=== PATIENT | male | born 1975 | race Caucasian/White ===

== ENCOUNTER 2016-10-04 21:06 | Inpatient (IN) | payer OTHER ==
[~2016-10-04] VITALS: Ht 182.9 cm; Wt 78.9 kg
[~2016-10-04 21:06] MED LIST: CEPHALEXIN500 M3 PO
--- NOTE | 2016-10-04 21:10 | ED PSYCHIATRIC COMPLAINT ---
History of Present Illness General Chief Complaint: Altered Mental Status Stated Complaint: BIBA FOR HALLUCINATIONS Source: patient Exam Limitations: no limitations Vital Signs & Intake/Output Vital Signs & Intake/Output Vital Signs Date Time Temp Pulse Resp B/P B/P Pulse O2 O2 Flow FiO2 Mean Ox Delivery Rate 10/05 0411 128 22 125/66 97 Room Air 10/05 0410 128 22 125/66 10/05 0200 97.2 117 22 150/78 10/05 0200 97.2 117 22 150/78 98 Room Air 10/05 0008 97.2 128 22 151/83 96 Room Air 10/04 2358 97.2 128 22 151/83 10/04 2131 97.7 142 20 118/72 10/04 2119 97.7 142 20 118/72 96 Room Air ED Intake and Output 10/05 0000 10/04 1200 Intake Total Output Total Balance Patient 175 lb Weight Weight Estimated Measurement Method Allergies Coded Allergies: No Known Allergies (10/07/15) Reconcile Medications Cephalexin 500 MG CAPSULE 2 CAP PO BID FINGER WOUND Citalopram Hydrobromide (Celexa) 20 MG TABLET 1 TAB PO DAILY DEPRESSION ( Reported) Quetiapine Fumarate (Seroquel) 100 MG TABLET SLEEP HELP (Reported) Triage Nurses Notes Reviewed? yes Onset: Gradual Duration: day(s): Timing: recent history Severity: moderate Associated Symptoms: anxiety, impaired concentration, insomnia HPI: 41 yo gentleman on seroquel and celexa for bipolar disorder, with hallucinations, h/o etoh abuse , presents with insomnia, increased hallucinations for the past 4 days. Tonight, his neighbors saw him rolling around in the dirt, and acting bizarrely. He notes that he looks at things, "and they seem to move." Per the medics, "He said that he saw an animal that wasn't there." He reports that he binge-drinks twice per week, has never had seizures. He denies SI/HI. He is otherwise well. Past History Travel History Traveled to [place] past 21 day No Medical History Any Pertinent Medical History? see below for history Neurological: NONE EENT: NONE Cardiovascular: NONE Respiratory: NONE Gastrointestinal: NONE Hepatic: NONE Renal: NONE Musculoskeletal: NONE Psychiatric: bipolar disease Endocrine: NONE Tetanus Vaccine: 10/07/15 Surgical History Surgical History: non-contributory Psychosocial History What is your primary language Welsh Family History Hx Contributory? No Review of Systems Review of Systems Constitutional: Reports: no symptoms. EENTM: Reports: no symptoms. Respiratory: Reports: no symptoms. Cardiovascular: Reports: no symptoms. GI: Reports: no symptoms. Genitourinary: Reports: no symptoms. Musculoskeletal: Reports: no symptoms. Skin: Reports: no symptoms. Neurological/Psychological: Reports: no symptoms. Hematologic/Endocrine: Reports: no symptoms. Immunologic/Allergic: Reports: no symptoms. All Other Systems: Reviewed and Negative Physical Exam Physical Exam General Appearance: well developed/nourished, mild distress Head: atraumatic Eyes: Bilateral: PERRL, EOMI. Ears, Nose, Throat: normal pharynx, normal ENT inspection, hearing grossly normal Neck: normal inspection, supple Respiratory: normal breath sounds Cardiovascular: regular rate/rhythm Gastrointestinal: soft, non-tender Extremities: normal range of motion Neurological/Psychiatric: no motor/sensory deficits, awake, agitated, anxious, oriented x 3 Appearance/Memory/Insight: disheveled Behavoir/Eye Contact/Speech: cooperative Thoughts/Hallucinations: auditory hallucinations, visual hallucinations Skin: intact, normal color, warm/dry SAD PERSONS Done? patient not suicidal Progress Differential Diagnosis: bipolar, alcoholism vs other. Plan of Care: Orders Procedure Date/time Status Nothing by Mouth 10/05 B Active ICU LAB BUNDLE 10/05 0615 Active ALKALINE PHOSPHATASE 10/05 0615 Active PROTHROMBIN TIME 10/05 0600 Complete HIV (Reflex to HIVCQ) 10/05 0600 Active HEPATITIS PANEL 10/05 0600 Active CBC WITHOUT DIFFERENTIAL 10/05 06 Complete BASIC ELECTROLYTES PLUS BUN&CR 10/05 0600 Active XRY-PORTABLE CHEST XRAY 10/05 0551 Active THYROID STIMULATING HORMONE 10/05 0540 Active FOLIC ACID 10/05 0540 Active VITAMIN B12 10/05 0540 Active Pathway - chart 10/05 0457 Active House Staff 10/05 0457 Active SOCIAL WORK CONSULT 10/05 0457 Active Code Status 10/05 0457 Active Intake & Output 10/05 0413 Active Patient Data 10/05 0408 Active Admit to inpatient 10/05 0403 Active Restraint- Medical 10/05 0235 Active Lab Add-on Test 10/05 UNK Active VTE Mechanical Prophylaxis 10/05 UNK Active Hemoccult 10/05 UNK Active PSYCHIATRIC CONSULT 10/05 UNK Active Continuous Observation Monitor 06/09 2224 Active EKG 10/05 2223 Active Pathway - chart 10/04 2222 Active CIWA 10/04 2222 Active ED CRISIS PSYCH CONSULT 10/04 2130 Active URINE DRUG SCREEN FOR ER ONLY 10/04 2112 Complete ETHANOL 10/04 2112 Complete COMPREHENSIVE METABOLIC PANEL 10/04 2112 Complete CBC WITHOUT DIFFERENTIAL 10/04 2112 Complete Current Medications Sig/Ravinder Start time Last Medication Dose Stop Time Status Admin Folic Acid 1 MG DAILY 10/08 1000 AC (Folic Acid) Multivitamins 1 TAB DAILY 10/08 1000 AC (Theragran Vitamins) Thiamine HCl 100 MG DAILY 10/08 1000 AC (Vitamin B1) Enoxaparin Sodium 40 MG DAILY 10/05 1000 AC (Lovenox) Cyanocobalamin/ 1 BAG DAILY 10/05 06 AC Thiamine/Pyridoxine 10/06 1759 (Vitamin in I.V.) Dextrose/Water 1,000 ML (D5W 1000) Lorazepam 50 MG Q24H 10/05 06 AC (Ativan Drip) Dextrose/Water 500 ML (Dextrose 5%) Pantoprazole Sodium 40 MG DAILY 10/05 06 AC (Protonix) Acetaminophen 650 MG Q6P PRN 10/05 0500 AC (Tylenol) Dextrose/Sodium 1,000 ML .Q10H 10/05 0500 AC Chloride (D5W-1/2 Normal Saline 1000ML) Lorazepam 2 MG Q2P PRN 10/04 2230 AC 10/05 (Ativan) 0230 Lorazepam 1 MG Q2P PRN 10/04 2230 AC (Ativan) Laboratory Tests 10/05/16 0551: Vitamin B12 Cancelled, Folate Cancelled, TSH Cancelled 10/05/16 0540: Anion Gap 16, Estimated GFR > 60, BUN/Creatinine Ratio 21.1, Vitamin B12 Pending , Folate Pending, TSH Pending, PT 11.7, INR 1.12, CBC w Diff NO MAN DIFF REQ, RBC 4.24 L, MCV 96.9 H, MCH 32.5 H, RDW 13.8, MPV 7.8, Gran % 81.6 H, Lymphocytes % 8.6 L, Monocytes % 8.7, Eosinophils % 0.7, Basophils % 0.4, Absolute Granulocytes 8.4 H, Absolute Lymphocytes 0.9 L, Absolute Monocytes 0.9 H, Absolute Eosinophils 0.1, Absolute Basophils 0, PUBS MCHC 33.5, Hepatitis A IgM Ab Pending, Hep Bs Antigen Pending, Hep B Core IgM Ab Conf Pending, Hepatitis C Antibody Pending, HIV 1&2 Ab Western Blot Pending 10/04/165: Urine Opiates Screen < 100.00, Methadone Screen < 40, Barbiturate Screen < 60, Ur Phencyclidine Scrn < 6.00, Amphetamines Screen < 100, U Benzodiazepines Scrn < 85, Urine Cocaine Screen < 50, Urine Cannabis Screen 5.30 10/04/165: Anion Gap 15, Estimated GFR > 60, BUN/Creatinine Ratio 20.0, Glucose 100 H, Calcium 10.2, Total Bilirubin 1.0, AST 161 H, ALT 146 H, Alkaline Phosphatase 85, Total Protein 8.3 H, Albumin 4.7, Globulin 3.6, Albumin/Globulin Ratio 1.3, CBC w Diff NO MAN DIFF REQ, RBC 4.28 L, MCV 96.9 H, MCH 32.7 H, RDW 13.8, MPV 7.5, Gran % 73.6, Lymphocytes % 14.1 L, Monocytes % 8.6, Eosinophils % 2.1, Basophils % 1.6, Absolute Granulocytes 8.0 H, Absolute Lymphocytes 1.5, Absolute Monocytes 0.9 H, Absolute Eosinophils 0.2, Absolute Basophils 0.2, PUBS MCHC 33.7, Serum Alcohol < 10.0 Initial ED EKG: sinus tachycardia Departure Departure Disposition: STILL A PATIENT Condition: Stable Clinical Impression Primary Impression: Glenna Secondary Impressions: Alcohol withdrawal syndrome Referrals: UNKNOWN Departure Forms: Customer Survey General Discharge Information Comments 10/05/16, 3:25AM... pt's delusions and tremors have accelerated over the past hour. Also, we obtained additional history from his family, stating that he drinks heavily (not the 1-2x a week that he originally stated). Given the recent acceleration in his symptoms, and the new history obtained from family, and a CIWA score of 22, this is most consistent with alcohol withdrawal symptoms. Pt merits icu level care. Admission Note Spoke With: PAMELA EDWARDS,VENANCIO Documentation of Exam: Documentation of any treatments & extenuating circumstances including Concerns Regarding Discharge (functional status, medication knowledge or non-compliance, living conditions, etc.) that warrant an admission rather than observation: See above. Patient initially had been calm and stable but over the past several hours has had increasing CIWA scores requiring large doses of Ativan 2 mg IV. He merits ICU level care for benzodiazepine administration. Critical Care Note Critical Care Note Critical Care Time: 30-74 min Comments: pt required multiple rounds of ativan and started on ativan drip. Delay in diagnosis due to unusual presentation of symptoms.
[2016-10-04] MEDS ORDERED: CELEXA20 M1 PO (21:16)
[2016-10-04] MEDS ORDERED: SEROQUEL100 M1 (21:17)
--- NOTE | 2016-10-04 21:19 | NUR ---
FROM HOME W/ C/O HALLUCINATIONS. STATES HE WAS AT A LIBERTARIAN FOR HIMSELF AND WAS DOING A LIBERTARIAN RELATED ACTIVITY WHEN NEIGHBOR NOTICED HIS INCREASED SHAKING AND CALLED EMS. PATIENT ARRIVES W/ EXTREMELY BLOODSHOT EYES. STATES THEY HAVE BEEN ITCHING AND DRAINING. EMS INFORMS THIS NURSE THAT THERE WAS NO ONE AT HIS HOUSE WITH HIM WHEN THEY ARRIVED.
--- NOTE | 2016-10-04 21:23 | NUR ---
PATIENT HAS NOT SLEPT SINCE FRIDAY. PATIENT STATES HE DOES NOT TAKE HIS MEDS PRESCRIBED. MOTHER STATES HE IS AN ALCOHOLIC. HAS EPISODES OF HALLUCINATIONS AND DELUSIONS. ADMITTED TO [facility] IN [facility]ARCH. WAS D/C'D W/ REFERRAL TO PSYCHIATRIST. WAS PRESCRIBED MEDS AND HAS NOT FOLLOWED UP. PSYCH MENTIONED TO FAMILY THAT PATIENT MAY BE BIPOLAR BUT PATIENT HAS HAD NO FOLLOW-UP. MOTHER IS UNSURE OF WHEN PATIENT HAD HIS LAST INTAKE OF ETOH. MOTHER DOESN'T PATIENT KNOW IF THE PATIENT CAN STAY AWAY FROM ETOH FOR MORE THAN A DAY. NEIGHBOR CALLED POLICE AFTER SEEING PATIENT IN YARD ACTING STRANGELY OUT IN THE YARD BY RUBBING DIRT ALL OVER HIMSELF. PATIENT DID NOT SHOW SIGNS OF BEING DIRTY ON ARRIVAL.
[2016-10-04 21:31] VITALS: BP 118/72
--- NOTE | 2016-10-04 21:39 | NUR ---
LABS SENT (BLUE,SST,LAV,HEATH)
[2016-10-04 21:44] LABS: ABSOLUTE BASOPHIL COUNT 0.2 /CUMM (0.0-0.2); ABSOLUTE EOSINOPHIL COUNT 0.2 /CUMM (0.0-0.7); ABSOLUTE LYMPH COUNT 1.5 /CUMM (1.2-3.4); ABSOLUTE MONOCYTE COUNT 0.9 /CUMM (0.10-0.60); BASOPHIL % 1.6 % (0.0-2.0); EOSINOPHIL % 2.1 % (0-5); GRANULOCYTE % 73.6 % (42.2-75.2); HEMATOCRIT 41.5 % (42-52); MEAN CORPUSCULAR HGB 32.7 PG (27.0-31.0); MEAN CORPUSCULAR HGB CONC 33.7 G/DL (33.0-37.0); MEAN CORPUSCULAR VOLUME 96.9 FL (80.0-94.0); MEAN PLATELET VOLUME 7.5 FL (7.4-10.4); PLATELET COUNT 215 /CUMM (130-400); RBC DISTRIBUTION WIDTH 13.8 % (11.5-14.5); RED BLOOD CELL CT 4.28 /CUMM (4.70-6.10); WHITE BLOOD CELL COUNT 10.9 /CUMM (4.8-10.8)
--- NOTE | 2016-10-04 21:49 | NUR ---
URINE TRIO SENT
--- NOTE | 2016-10-04 21:55 | NUR ---
1 pr shoes 1 pr white socks 1 pr khaki cargo short 1 blue t-shirt all items bagged, labled and locked in closet.
--- NOTE | 2016-10-04 21:59 | NUR ---
MEAL TRAY GIVEN
--- NOTE | 2016-10-04 22:31 | NUR ---
PATIENT REMAINS IN ROOM 3 AND THERE IS NO ONE ELSE PRESENT BUT HE IS CONTINUOUSLY TALKING TO PERSONS THAT AREN'T THERE. PATIENT REMAINS CALM.
--- NOTE | 2016-10-04 22:52 | NUR ---
REPORT TO NORMA JOHNSON
--- NOTE | 2016-10-04 23:00 | NUR ---
PT STANDING AT DOOR SHAKING AND STATES HE IS LOOKING FOR HIS CLOTHES. PT INFORMED THAT CLOTHES ARE LOCKED AWAY IN OUR CLOSET AND WILL BE RETURNED UPON DISCHARGE. PT STATES "OKAY, IM JUST READY TO GO." PT INFORMED THAT HE WILL BE STAYING HERE IN THE ED FOR THE NIGHT. PT LOOKS OVER HIS SHOULDER AND STATES "HE'S READY TO GO." PT ASSISTED BACK TO STRETCHER. TELEVISION TURNED ON DISTRACTION TECHNIQUE.
[2016-10-04 23:58] VITALS: BP 151/83
[2016-10-05] VITALS (7 sets, daily range): BP systolic 118–150; BP diastolic 58–100
--- NOTE | 2016-10-05 00:06 | NUR ---
PT CIWA 22 AT THIS TIME. PT MEDICATED PER EMAR. PT SPEAKING IN SENTENCES THAT ARE UNRELATED TO CURRENT SITUATION. PT ALERT TO PERSON, PLACE AND TIME.
--- NOTE | 2016-10-05 00:30 | NUR ---
PT ATTEMPTS TO LEAVE ROOM AND STATES "HE TRIED TO THROW SOMETHING AT ME" HE POINTS TO THE CORNER OF THE ROOM. PT REDIRECTED AND INFORMED THAT HE IS AT [facility] AND HE IS THE ONLY PERSON IN HIS ROOM AT THIS TIME. PT SITTING ON BED AT THIS TIME.
--- NOTE | 2016-10-05 01:01 | NUR ---
PT BECOMING AGGRESSIVE TOWARDS STAFF. SECURITY AT BEDSIDE. PT CONFUSED AND AGITATED. DR BENDER AWARE. PT MEDICATED PER EMAR. WILL CONTINUE TO MONITOR. SITTER IN PLACE.
--- NOTE | 2016-10-05 02:00 | NUR ---
PT HAS REMOVED BLUE SCRUBS AND IS SITTING IN CORNER OF ROOM ON THE FLOOR. THIS RN IN TO SPEAK WITH PT. PT SPEAKING IN WORD SALAD. PT ASSISTED TO PUT BLUE SCRUBS BACK ON. MADE AWARE.
--- NOTE | 2016-10-05 02:35 | NUR ---
PT CONTINUES TO DEMONSTRATE AGGRESSIVE BEHAVIOR. PT HAS MADE MULTIPLE ATTEMPTS TO ESCAPE FROM ROOM. MULTIPLE RELAXATION AND DISTRACTION TECHNIQUES INITIATED. PT PLACED IN NET BED PER ORDER.
--- NOTE | 2016-10-05 03:23 | NUR ---
PT CONTINUES TO HAVE TREMORS. PT DIAPHORETIC. PT NOTED TO BE CONFUSED AND SPEAKING IN WORD SALAD. DR BENDER IN TO EVAL PT. PT MOVED TO MEDICAL ROOM 12. SECURITY AT BEDSIDE FOR ASSISTANCE.
--- NOTE | 2016-10-05 04:13 | NUR ---
DR SANTIAGO IN TO EVAL PT. PT REMAINS CONFUSED. PT DEMONSTRATES SEVERE TREMORS. PT MEDICATED WITH ATIVAN IV PER EMAR.
--- NOTE | 2016-10-05 04:17 | NUR ---
DR BENDER AT BEDSIDE.
--- NOTE | 2016-10-05 04:22 | NUR ---
PT NOTED TO BE SLEEPING IN NET BED, SNORING PRESENT. MINOR TREMORS OF HANDS NOTED. WILL CONTINUE TO MONITOR.
--- NOTE | 2016-10-05 04:52 | History & Physical ---
ANSELMOJHOANATAMARA ACOSTA 10/05/16 0452: General Information and HPI MD Statement: I have seen and personally examined KARI MEDINA and documented this H& P. The patient is a 41 year old M who presented with a patient stated chief complaint of alcohol withdrawal Source of Information: ED records Exam Limitations: obtunded History of Present Illness: 41-year-old gentleman with past medical history significant for depression bipolar disorder questionable she is still effective disorder, alcohol abuse brought in by ambulance as his neighbors noted that he was throwing dirt himself and acting strange and they called 911. Unable to obtain any history as patient is currently obtunded and is arousable to voice however not answering any questions. ED staff spoke to his mother who stated that he is a heavy drinker and that he is noncompliant with his medications. He was admitted [facility] in March 2016. Allergies/Medications Allergies: Coded Allergies: No Known Allergies (10/07/15) Home Med list Cephalexin 500 MG CAPSULE 2 CAP PO BID FINGER WOUND Citalopram Hydrobromide (Celexa) 20 MG TABLET 1 TAB PO DAILY DEPRESSION ( Reported) Quetiapine Fumarate (Seroquel) 100 MG TABLET SLEEP HELP (Reported) Compliance With Home Meds: POOR Past History Travel History Traveled to [place] past 21 day No Medical History Neurological: NONE EENT: NONE Cardiovascular: NONE Respiratory: NONE Gastrointestinal: NONE Hepatic: NONE Renal: NONE Musculoskeletal: NONE Psychiatric: depression Endocrine: NONE Isolation History: Standard Tetanus Vaccine: 10/07/15 Surgical History Surgical History: non-contributory Past Family/Social History Psychosocial History ETOH Use: occasional use Review of Systems Review of Systems Constitutional: Reports: see HPI. Exam & Diagnostic Data Last 24 Hrs of Vital Signs/I&O Vital Signs Date Time Temp Pulse Resp B/P B/P Pulse O2 O2 Flow FiO2 Mean Ox Delivery Rate 10/05 0411 128 22 125/66 97 Room Air 10/05 0410 128 22 125/66 10/05 0200 97.2 117 22 150/78 10/05 0200 97.2 117 22 150/78 98 Room Air 10/05 0008 97.2 128 22 151/83 96 Room Air 10/04 2358 97.2 128 22 151/83 10/04 2131 97.7 142 20 118/72 06/09 2119 97.7 142 20 118/72 96 Room Air Intake & Output 10/05 0800 10/05 0000 10/04 1600 Intake Total 220 Output Total Balance 220 Intake, Oral 220 Patient 175 lb Weight Weight Estimated Measurement Method Physical Exam General Appearance obtunded Skin plethoric Skin Temp/Moisture Exam: Warm/Dry HEENT Atraumatic, PERRLA Cardiovascular Normal S1, Normal S2, tachycardic Lungs Clear to Auscultation Abdomen Soft, No Tenderness Extremities No Edema Diagnostic Data EKG Results Sinus tachycardia Assessment/Plan Assessment: 41-year-old gentleman with past medical history significant for depression bipolar disorder questionable she is still effective disorder, alcohol abuse brought in by ambulance as his neighbors noted that he was throwing dirt himself and acting strange and they called 911. Will admit to ICU for IV ativan drip As Ranked By This Provider Problem List: 1. Alcohol withdrawal syndrome Assessment/Plan vitals per protocol, seizure precautions ? ETOH withdrawal vs Drug toxicity IV ativan drip per CIWA score, Banana bag, IV thiamine, IV fluids, IV PPI utox negative Collateral information from family in AM. follow up TSH, B12, folic acid, hepatitis panel and HIV. Check INR. follow CXR for aspiration Please reconcile CMR in am Keep NPO and hold all meds for now Psych and social work consult when stable. dvt ppx with sc lovenox 2. Full code status Core Measures/Miscellaneous Acute Coronary Syndrome ACS Diagnosis: No Cerebrovascular Accident CVA/TIA Diagnosis: No Congestive Heart Failure CHF Diagnosis: No VTE (View Protocol) VTE Risk Factors: Age > 40 [facility] d/t: No contraindications No VTE Pharm Prophylaxis d/t: No contraindications VTE Diagnosis: No VTE Type: NONE VTE Confirmed by (Test): NONE Sepsis (View Protocol) Severe Sepsis Present: No Septic Shock Septic Shock Present: No Miscellaneous Documentation Attending Case Discussed With: VENANCIO SANTIAGO MD Primary Care Physician: PATIENT HAS NO PRIMARY CARE DR Patient sees these Specialists none Level of Patient Care: Critical Care (CRI) ERMA GALO MD 10/05/16 0501: Resident Review Statement Resident Statement: examined this patient, discussed with mechanical engineering intern, agreed with mechanical engineering intern, discussed with family Other Findings: 41-year-old male with past medical history of bipolar disorder and alcohol abuse comes in with complaints of abnormal behavior with auditory and visual hallucinations. Patient is altered and not able to give a history. However from ER notes patient's family have reported that patient binge drinks heavily which may explain his symptoms. His last drink was reportedly 4-5 days ago. Hx of seiqures is not known but pt has not been complaint with his psych medications or visits for his bipolar condition. Urine tox-Neg for ETOH CIWAs in the ER have ranged from 22-31 Problem list Severe alcohol withdrawal-High risk for DTs Alcohol abuse Leukocytosis-Reactive or due to dehydration Plan Admit to ICU Start Ativan drip and titrate as needed CIWA Q1hrs IV banana bag till able to take oral meds; then switch to PO Multivitamins, Thiamine and Folate IV PPI Watch his vitals closely IVF D5/1/2 NS 100cc/hr for hydration Keep him NPO for now Check TSH, B12, Folate Chek INR Check Hepatitis panel/HIV Check and replete electrolytes as needed Psych and SW consults Mild Pain pathway FC DVT ppx-sc lovenox Please obtain more thorough history from family. PAMELA EDWARDS, [facility] 10/05/16 0510: Attending MD Review Statement Attending Statement Attending MD Statement: examined this patient, discuss w/resident/PA/DENTAL ASSISTANT INSTRUCTOR, agreed w/resident/PA/DENTAL ASSISTANT INSTRUCTOR Attending Assessment/Plan: 41 yo M with h/o depression, bipolar disorder, ?schizoaffective d/o, alcohol abuse was brought in from home to ER on October 04 for c/o visual hallucinations and insomnia for past 4 days. History is as obtained from the chart, as patient was sedated and confused on my eval. Neighbours saw him rolling around in the dirt, acting bizarre and called 911. On ER arrival, patient reported he binge- drinks, never had seizures and denied SI or HI. Unclear when his last drink was. Non compliant with medications. Per RN notes, patient was admitted to [facility] in Mar 2016 but never followed Psych thereafter. While in the ER, patient was talking to persons that were not there, was confused and agitated. His CIWA's were high ~ 20-30's. He received about 10-12 mg of ativan and 20 mg of zyprexa. Vitals stable except for tachycardia. Limited exam, patient was lying naked on his bed, confused, tremulous, diaphoretic, eyes closed, speaking gibberish. Pupils mid dilated, reactive to light. Crusting noted in the eyes. Dry mucous membranes. Chest b/l clear, Heart S1S2 tachycardic, Abdo: soft, non tender. LE: no edema. Neuro: moving all extremities, no obvious focal deficit. Labs: WBC 10.9, H/H 14/41.5, macrocytosis, glucose 100, AST 161, ALT 146. Utox neg. S. Alcohol <10. EKG: Sinus tachycardia. 1. Acute alcohol withdrawal with delirium tremens. ICU admit, vitals Q1, CIWA protocol, IV ativan drip to titrate based on CIWA scores, NPO, currently respiratory status stable. Banana bag, IV thiamine, IV fluids. Maintain sitter protocol. Urine tox screen is negative, not sure if he consumed any other drugs. Please obtain collateral information from family in AM. Psych and social work consult when able. 2. Leukocytosis ?reactive. Check urinalysis and CXR. 3. Macrocytosis likely 2/2 alcohol use. Check TSH, B12, folic acid. 4. Transaminitis in the setting of alcohol use. Check hepatitis panel and HIV. Check INR. 5. Depression, BPD. Patient is on citalopram and seroquel per med claim history. Will hold off meds for now, consult Psych and resume when patient able to take PO. GI ppx IV PPI. DVT ppx Lovenox. Full code. TTS > 45 mins
--- NOTE | 2016-10-05 04:59 | NUR ---
PT REMAINS ASLEEP IN NET BED. NORMAL RR NOTED. WILL CONTINUE TO MONITOR.
--- NOTE | 2016-10-05 05:10 | NUR ---
PT DEMONSTRATING INCREASED TREMORS. PT MEDICATED PER EMAR. HOUSESTAFF AT BEDSIDE FOR EVAL. PHARMACY CALLED FOR ATIVAN DRIP.
--- NOTE | 2016-10-05 05:11 | Admission Certification ---
Admission Certification Certification Statement - As attending physician, I certify that at the time of - admission, based on clinical presentation, severity of - symptoms, need for further diagnostic testing and - therapeutic interventions, and risk of adverse outcomes - without in-hospital treatment, in my clinical assessment, - this patient requires an acute hospital stay for a minimum - of two nights or longer. I have also considered psychsocial - factors such as support system, advanced age, financial - issues, cognitive issues, and failed out-patient treatments, - past re-admission history, safety of patient, and lack of - compliance as applicable. Specific rationale supporting this admission is: Acute alcohol withdrawal with delirium tremens requiring ativan drip and ICU level of care.
--- NOTE | 2016-10-05 05:19 | NUR ---
PER MD RITCHIE START BANANA BAG SOON SECOND LINE IS ESTABLISHED. PHARMACY CALLED FOR BANANA BAG.
--- NOTE | 2016-10-05 05:20 | NUR ---
PT DEMONSTRATING JERKING MOVEMENTS OF ARMS. HOUSESTAFF AWARE.
--- NOTE | 2016-10-05 05:47 | NUR ---
SSTX2, LAV AND BLUE TOP TUBES SENT TO LAB.
[2016-10-05 05:59] LABS: ABSOLUTE BASOPHIL COUNT 0 /CUMM (0.0-0.2); ABSOLUTE EOSINOPHIL COUNT 0.1 /CUMM (0.0-0.7); ABSOLUTE GRANULOCYTE CT 8.4 /CUMM (1.4-6.5); ABSOLUTE LYMPH COUNT 0.9 /CUMM (1.2-3.4); ABSOLUTE MONOCYTE COUNT 0.9 /CUMM (0.10-0.60); BASOPHIL % 0.4 % (0.0-2.0); EOSINOPHIL % 0.7 % (0-5); GRANULOCYTE % 81.6 % (42.2-75.2); HEMATOCRIT 41.1 % (42-52); MEAN CORPUSCULAR HGB 32.5 PG (27.0-31.0); MEAN CORPUSCULAR HGB CONC 33.5 G/DL (33.0-37.0); MEAN CORPUSCULAR VOLUME 96.9 FL (80.0-94.0); MEAN PLATELET VOLUME 7.8 FL (7.4-10.4); PLATELET COUNT 205 /CUMM (130-400); RBC DISTRIBUTION WIDTH 13.8 % (11.5-14.5); RED BLOOD CELL CT 4.24 /CUMM (4.70-6.10); WHITE BLOOD CELL COUNT 10.3 /CUMM (4.8-10.8)
[2016-10-05 06:04] LABS: PT 11.7 SEC (9.4-12.5)
--- NOTE | 2016-10-05 07:15 | NUR ---
ATIVAN DRIP INITIATED IN L HAND IV. BANANA BAG DRIP INITIATED IN R HAND IV.
--- NOTE | 2016-10-05 07:16 | NUR ---
REPORT GIVEN TO NORMA BEDOLLA.
--- NOTE | 2016-10-05 07:18 | NUR ---
ASSUMED CARE OF PT WHO IS CURRENTLY IN NET BED, SHAKING AND SCRATCHING OCCASIONALLY. PT REMOVED HIS PAPER SCRUBS AND WAS PLACED IN A JOHNNEY COAT BY THIS SUPERVISOR MOLD SHOP. ATIVAN GTT INFUSING AT 24 ML/HR (2.4 MG/HR). BANANNA BAG ALSO INFUSING. PT WITHIN VISUAL VIEW OF THIS SUPERVISOR MOLD SHOPCANDI CURRENTLY AT BEDSIDE
--- NOTE | 2016-10-05 07:52 | NUR ---
ROOM 106
--- NOTE | 2016-10-05 08:29 | NUR ---
REPORT TO ICU. UNABLE TO OBTAIN CXR D/T PT CONDITION
--- NOTE | 2016-10-05 08:42 | NUR ---
PT PULLED OUT IV IN RH. #20 G PLACED IN RW
--- NOTE | 2016-10-05 09:30 | NUR ---
TRANSFER FROM ER; SOFT SPOKEN DROWSEY/AROUSABLE MAN; ORIENTED TO DATE BUT THINKS HE IS HOME. EYES ARE VERY RED WITH CRUSTY DRAINAGE NOTED. SR IN THE 90'S, BP 130/60, TEMP 97.3. LUNGS CLEAR ALL LOBES SAT. 95%, PT. DOESNT KNOW WHEN HE POOPED LAST BUT SAID HIS LAST DRINK WAS FRIDAY. ZUÑIGA, BILAT. WRIST AND SANDRO RESTRAINTS PLACED ORDERED. ATIVAN GTT AT 3MG/HR FOR SAS OF 3, WILL TITRATE PER PROTOCOL. GROIN RED WITH NO BREAKDOWN; ALOEVESTA APLLIED. BED ALARM, RED SOCKS PLACED. MOTHER EMMA UPDATED PER PHONE CALL WITH DR. RAJPUT.
--- NOTE | 2016-10-05 12:00 | NUR ---
PSYCHIATRY CAME BY TO SEE PT.; PT. NOT APPROPRIATE FOR COMPREHENSIVE ASSESSMENT BY PSYCHE AT THIS TIME; THEY WILL TRY AGAIN TOMORROW
--- NOTE | 2016-10-05 12:42 | Event Note ---
Event Note Event Note: Interval History : I talked to the mother - EMMA SHAW [phone] at length, about his son's History and more details on his presentation and alcohol addiction. * Apparently the son - Mr. Colbert had been drinking socially over the weekend, since his teenage years, however this was never recognized as a problem until 5 years ago. 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 * The entire family including his and 2 sons were in the [place] 2-1 /2 years for 9 years when they moved back to the [place]. * He started having issues with drinking when he started having frequent falls, he would be over drunk started having problems at his workplace 5 years ago.Subsequently he also got . * The two sons and the live with . his mother ,but he has been living on his own since 2 years. He lost his job 1 year ago. * Previously patient was admitted at a rehabilitation center, at [facility], 3 years ago and apparently that must have been the only period when he might have sober for 30 days as per the mother. * She could not give all the details as she does not live with him however, as per her ,he mostly drinks Gin and can easily go up to a bottle a day. * He also had a recent admission at [facility] in March 2016, he was apparently In the psych ICU, he was asked to follow up with psychiatry after discharge and there was only one occasion when he visited a doctor. * He does not like doctors, he never followed up with his psychiatrist after that visit as per her. * She wasn't sure if he was taking his medications. * She did not give us any history of any other addictions other than alcohol. * She did endorse a history that he keeps having hallucinations, paranoia on and off and is always shaky. * She did not know if he had any alcohol withdrawal seizures. * She wasn't aware, when his last drink would have been however she said that he was going to meet his boys over the weekend and there might be a possibility that he was trying to avoid drinking in order to be sober to meet them. * She was not aware of his medications and doesn't have PCP and doesn't visit any doctors * PMH : depression, bipolar, as per her, no other Chronic conditions. * Also, went and checked him home, most of his psych medications were in the bottle and he seemed to be no taking them at all - citalopram and quetiapine the house was tidy, he has OTC allergy medications, 2 empty bottles of vodka and empty cans of budlight.
--- NOTE | 2016-10-05 13:30 | PN- Att Addend ---
Attending Addendum Attending Brief Note 41-year-old male with past medical history significant for bipolar disorder, depression, she has affective disorder, I'll call abuse has been admitted to the ICU for alcohol detox. Unfortunately patient is still obtunded due to continuous IV Ativan drip because of the high CIWA score and has been unable to communicate. Vitals stable and Labs noted. Resident has been able to get more information from patient's mother on the phone. Patient has also been recently admitted to [facility] in March 2016 where he was in the psych ICU and has been following up with the psychiatric. And his elevated CIWA score we'll continue to keep him on IV Ativan drip. His leukocytosis has came down with no signs of infections, no fever no white count, chest x-ray yet to be done. Please with the psych on board and replaces electrolytes. Should be kept off of his psych medications for now.
--- NOTE | 2016-10-05 15:35 | RADIOLOGY REPORT ---
EXAMINATION: XR PORTABLE CHEST CLINICAL INFORMATION: Obtunded patient. Evaluate for aspiration. COMPARISON: None TECHNIQUE: Portable frontal view of the chest was obtained. FINDINGS: Lungs are slightly hypoinflated and right diaphragm elevated. No evidence of pulmonary consolidation, interstitial edema or pleural effusion. Cardiac silhouette is normal in size. The bones are unremarkable. IMPRESSION: No evidence of aspiration pneumonia.
--- NOTE | 2016-10-05 20:00 | NUR ---
PATIENT WILL ANSWER QUESTIONS,FOLLOW COMMANDS,MOVE ALL EXTREMITIES.TREMULOUS WITH MOVEMENT BUT TREMORS NOT PRESENT WITH REST.SOFT SPOKEN AND CO OPERATIVE. ATIVAN DRIP AT 4 MG/HR.MONITOR SINUS RHYTHM AT RATE OF 90.XO=485/80.IVF OF D51/2/NS AT 100 ML/HR. PT REMAINS NPO.URINE OUTPUT 45 ML/HR FOR LAST HOUR VIA ZUÑIGA CATHETER.LUNG SOUNDS CLEAR,SAT=98% ON ROOM AIR.
[2016-10-06] VITALS: BP 130/80
[2016-10-06 05:28] LABS: ABSOLUTE BASOPHIL COUNT 0.1 /CUMM (0.0-0.2); ABSOLUTE EOSINOPHIL COUNT 0.4 /CUMM (0.0-0.7); ABSOLUTE GRANULOCYTE CT 6.9 /CUMM (1.4-6.5); ABSOLUTE LYMPH COUNT 1.5 /CUMM (1.2-3.4); EOSINOPHIL % 4.2 % (0-5); GRANULOCYTE % 69.8 % (42.2-75.2); HEMATOCRIT 41.5 % (42-52); MEAN CORPUSCULAR HGB 32.6 PG (27.0-31.0); MEAN CORPUSCULAR HGB CONC 33.1 G/DL (33.0-37.0); MEAN CORPUSCULAR VOLUME 98.4 FL (80.0-94.0); MEAN PLATELET VOLUME 7.8 FL (7.4-10.4); PLATELET COUNT 219 /CUMM (130-400); RBC DISTRIBUTION WIDTH 13.7 % (11.5-14.5); RED BLOOD CELL CT 4.22 /CUMM (4.70-6.10); WHITE BLOOD CELL COUNT 9.9 /CUMM (4.8-10.8)
[2016-10-06 06:00] VITALS: BP 119/80
[2016-10-06 08:00] VITALS: BP 118/70
--- NOTE | 2016-10-06 08:25 | Cons- CRCU ---
See Addendum General Information and HPI Consulting Request Date of Consult: 10/06/16 Requested By: MD PAMELA Reason for Consult: Alcohol withdrawl with DTs Source of Information: patient, family Exam Limitations: unable to give history History of Present Illness: This is a 41-year-old gentleman with a past medical history is significant for depression, bipolar disease, alcohol abuse since teenage years with rehabilitation placement in [place] 3 years ago, no reported or documented history of withdrawal seizures, noncompliance with his medications and psychiatric follow-up, recent psych admission at [facility], presented with a 4 day history of visual hallucination, insomnia, agitation and confusion. At presentation, patient denied any suicidal or homicidal ideation. Unclear when was the last drink. His U tox screen for drugs of abuse is unremarkable. Significant part of the history was obtained after the medical team contacted family. Allergies/Medications Allergies: Coded Allergies: No Known Allergies (10/07/15) Home Med List: Cephalexin 500 MG CAPSULE 2 CAP PO BID FINGER WOUND Citalopram Hydrobromide (Celexa) 20 MG TABLET 1 TAB PO DAILY DEPRESSION ( Reported) Quetiapine Fumarate (Seroquel) 100 MG TABLET SLEEP HELP (Reported) Review of Systems Review of Systems Constitutional: Reports: no symptoms. EENTM: Reports: no symptoms. Cardiovascular: Reports: no symptoms. Respiratory: Reports: no symptoms. GI: Reports: no symptoms. Genitourinary: Reports: no symptoms. Musculoskeletal: Reports: no symptoms. Skin: Reports: no symptoms. Neurological/Psychological: Reports: confusion. Hematologic/Endocrine: Reports: no symptoms. Past History Travel History Traveled to [place] past 21 day No Medical History Neurological: NONE EENT: NONE Cardiovascular: NONE Respiratory: NONE Gastrointestinal: NONE Hepatic: NONE Renal: NONE Musculoskeletal: NONE Psychiatric: depression, ETOH Endocrine: NONE Surgical History Surgical History: non-contributory Psychosocial History Where Do You Live? Home Services at Home: None Smoking Status: Unknown If Ever Smoked ETOH Use: occasional use Exam & Diagnostic Data Last 24 Hrs of Vital Signs/I&O Vital Signs Date Time Temp Pulse Resp B/P B/P Pulse O2 O2 Flow FiO2 Mean Ox Delivery Rate 10/06 0800 97.6 76 22 118/70 94 Room Air 10/06 0600 88 18 119/80 10/06 0400 95 Room Air 10/06 0000 97.2 100 18 130/80 10/06 0000 97.2 100 18 130/80 93 Room Air 10/06 0000 93 Room Air 10/05 2200 91 20 124/80 10/06 1999 98.2 90 20 124/80 10/06 1999 98 Room Air 10/05 1600 98.2 90 22 118/58 98 Room Air Intake & Output 10/06 1600 10/06 0800 10/06 0000 Intake Total 602 1241 Output Total 725 605 Balance -123 636 Intake, IV 602 1241 Output, Urine 725 605 Physical Exam General Appearance: alert, awake, tremulous Other Physical Findings: Skin Temp/Moisture Exam: Warm/Dry HEENT Atraumatic, PERRLA Cardiovascular Normal S1, Normal S2, tachycardic Lungs Clear to Auscultation Abdomen Soft, No Tenderness Extremities: upper extremity tremors noted Last 48 Hrs of Labs/Stevo: Laboratory Tests 10/06/16 0400: Anion Gap 11, Estimated GFR > 60, Glucose 71, Calcium 8.9, Phosphorus 4.0, Magnesium 2.1, Total Bilirubin 1.4 H, AST 202 H, ALT 183 H, Albumin 4.0, CBC w Diff NO MAN DIFF REQ, RBC 4.22 L, MCV 98.4 H, MCH 32.6 H, RDW 13.7, MPV 7.8 , Gran % 69.8, Lymphocytes % 14.8 L, Monocytes % 10.2 H, Eosinophils % 4.2, Basophils % 1.0, Absolute Granulocytes 6.9 H, Absolute Lymphocytes 1.5, Absolute Monocytes 1.0 H, Absolute Eosinophils 0.4, Absolute Basophils 0.1, PUBS MCHC 33.1 10/05/16 0615: Sodium Cancelled, Potassium Cancelled, Chloride Cancelled, Carbon Dioxide Cancelled, Anion Gap Cancelled, BUN Cancelled, Creatinine Cancelled, Glucose Cancelled, Calcium Cancelled, Phosphorus Cancelled, Magnesium Cancelled, Total Bilirubin Cancelled, Direct Bilirubin Cancelled, AST Cancelled, ALT Cancelled, Alkaline Phosphatase Cancelled, Total Protein Cancelled, Albumin Cancelled 10/05/16 0551: Vitamin B12 Cancelled, Folate Cancelled, TSH Cancelled 10/05/16 0540: Anion Gap 16, Estimated GFR > 60, BUN/Creatinine Ratio 21.1, Calcium 10.7 H, Phosphorus 5.0 H, Magnesium 1.9, Vitamin B12 512, Folate 19.4, TSH 2.070, PT 11.7, INR 1.12, CBC w Diff NO MAN DIFF REQ, RBC 4.24 L, MCV 96.9 H, MCH 32.5 H, RDW 13.8, MPV 7.8, Gran % 81.6 H, Lymphocytes % 8.6 L, Monocytes % 8.7, Eosinophils % 0.7, Basophils % 0.4, Absolute Granulocytes 8.4 H, Absolute Lymphocytes 0.9 L, Absolute Monocytes 0.9 H, Absolute Eosinophils 0.1, Absolute Basophils 0, PUBS MCHC 33.5, Hepatitis A IgM Ab NONREACTIVE, Hep Bs Antigen NONREACTIVE, Hep B Core IgM Ab Conf NONREACTIVE, Hepatitis C Antibody NONREACTIVE, HIV 1&2 Ab Western Blot NONREACTIVE 10/04/16 2145: Urine Opiates Screen < 100.00, Methadone Screen < 40, Barbiturate Screen < 60, Ur Phencyclidine Scrn < 6.00, Amphetamines Screen < 100, U Benzodiazepines Scrn < 85, Urine Cocaine Screen < 50, Urine Cannabis Screen 5.30 10/04/162134: Anion Gap 15, Estimated GFR > 60, BUN/Creatinine Ratio 20.0, Glucose 100 H, Calcium 10.2, Phosphorus 3.5, Magnesium 1.6, Total Bilirubin 1.0, AST 161 H, ALT 146 H, Alkaline Phosphatase 85, Total Protein 8.3 H, Albumin 4.7, Globulin 3.6, Albumin/Globulin Ratio 1.3, CBC w Diff NO MAN DIFF REQ, RBC 4.28 L, MCV 96.9 H, MCH 32.7 H, RDW 13.8, MPV 7.5, Gran % 73.6, Lymphocytes % 14.1 L, Monocytes % 8.6, Eosinophils % 2.1, Basophils % 1.6, Absolute Granulocytes 8.0 H, Absolute Lymphocytes 1.5, Absolute Monocytes 0.9 H, Absolute Eosinophils 0.2 , Absolute Basophils 0.2, PUBS MCHC 33.7, Serum Alcohol < 10.0 10/04/162112: Urine Color YEL, Urine Clarity HAZY H, Urine pH 6.0, Ur Specific Trimble 1.025, Urine Protein 30 H, Urine Ketones TRACE H, Urine Nitrite NEG, Urine Bilirubin NEG@ICTO, Urine Urobilinogen 1.0, Ur Leukocyte Esterase NEG, Ur Microscopic SEDIMENT EXAMINED, Urine RBC RARE, Urine WBC RARE, Urine Crystals RARE CA OX, Urine Mucus PACKD H, Urine Hemoglobin NEG, Urine Glucose NEG Microbiology 10/05 944 UPPER RESP: Surveillance Culture - COMP 10/05 944 GI: Surveillance Culture - COMP Assessment/Plan Impression/Plan: This is a 41-year-old gentleman with an extensive psychiatric history of bipolar disease, depression, recently hospitalized at [place] for psych issues, alcohol abuse since teenage years with a reported rehabilitation admission in [place] 3 years ago, continues to drink w/last drink date not known, presents with signs and symptoms consistent with delirium trenems (visual hallucination, global confusion, tremors, tachycardia and CIWA scores in the 20s). Patient required Ativan drip and admission to ICU. He remains free from suicidal or homicidal ideation. Impression * Alcohol withdrawal with delirium tremens. Pt has an extensive history of alcohol abuse, his last date of drink is not known, his serum alcohol level shows lower limit of detection <10mg/dl. Patient is a high risk of worsening withdrawal symptoms when his alcohol level completely clears. Current CIWA score is 7, significant for tremors with a score of 4. * Transaminitis. Consistence with alcohol abuse with a pattern of of AST > ALT ratio. * History of psychiatric illness with prior hospitalization (bipolar and depression. Noncompliant with medication or psychiatric follow-up visits. Plan Continue ICU placement Current Ativan drip is at 4 mg per hour, will taper appropriately Will continue banana bag, thiamine, and folate supplementation Seizure precautions Passed bedside swallow eval, will advance diet to regular Will continue 4 point restraints and reassess every 4 hours Will await psych recommendation regarding patient's depression, bipolar and alcohol abuse history. Will defer to psych on when to restart psychiatric medication as patient has been reported not to have been taking them while at home. Problem List: 1. Alcohol withdrawal syndrome Consult Acknowledgment - Thank you for your consult request.
--- NOTE | 2016-10-06 12:44 | Cons- Psychiatry ---
Psychiatric Consult Date of Consult: 10/06/16 Reason for Consult: alcohol dependence, delirium, History of Present Illness: patient is a 41 yo male with hx of alcohol dependnce. unclear psych hx. He came to the ed after neighbors called police as he was having bizarre behavior. Patient admits drinking heavily, about half a bottle of vodka adn a few beers, "a couple of time a week". He say his last drink was friday and he did not sleep for 4 nights after. He does not remember well the circumstances that broght him to the hos[pital. He say she was digging in his backyard looking for some bugs. He is a bit foggy still buit he is clearly clearing up. He has been receiving atvan drip at 4mg /hour. Allergies: Coded Allergies: No Known Allergies (10/07/15) Current Medications: Current Medications Sig/Ravinder Start time Last Medication Dose Route Stop Time Status Admin Acetaminophen 650 MG Q6P PRN 10/05 0500 DC PO Cyanocobalamin/ 1 BAG DAILY 10/05 1240 AC 10/06 Thiamine/Pyridoxine IV 0943 Dextrose/Water 1,000 ML Cyanocobalamin/ 1 BAG DAILY 10/05 0600 DC 10/05 Thiamine/Pyridoxine IV 10/06 1759 0704 Dextrose/Water 1,000 ML Dextrose/Sodium 1,000 ML .Q10H 10/05 0500 DC 10/05 Chloride IV 0753 Enoxaparin Sodium 40 MG DAILY 10/05 1000 AC 10/06 SC 0906 Erythromycin 1 FROILAN 4 TIMES/DAY 10/05 1800 AC 10/06 OPH 0906 Folic Acid 1 MG DAILY 10/08 1000 DC PO Insulin Human Regular 1 UNITS .STK-MED ONE 10/06 0018 DC IV 10/06 0019 Insulin Human Regular 0 Q6 10/05 1200 DC 10/05 SC 1240 Lorazepam 50 MG Q12H 10/05 2100 AC 10/06 Dextrose/Water 500 ML IV 0943 Lorazepam 1 MG Q4P PRN 10/05 2045 AC IV Lorazepam 50 MG Q24H 10/05 0600 DC 10/05 Dextrose/Water 500 ML IV 0704 Lorazepam 2 MG Q2P PRN 10/04 2230 AC 10/05 PO 0230 Lorazepam 1 MG Q2P PRN 10/04 2230 AC PO Multivitamins 1 TAB DAILY 10/08 1000 CAN PO Pantoprazole Sodium 40 MG DAILY 10/05 0600 AC 10/06 IV 0905 Potassium Chloride 10 MEQ Q1H 10/06 1000 DC 10/06 IV 10/06 1101 1108 Potassium Chloride 40 MEQ ONCE ONE 10/06 0945 CAN PO 10/06 0946 Thiamine HCl 100 MG DAILY 10/08 1000 DC PO Past History Past Medical History Neurological: NONE EENT: NONE Cardiovascular: NONE Respiratory: NONE Gastrointestinal: NONE Hepatic: NONE Renal: NONE Musculoskeletal: NONE Psychiatric: depression, ETOH Endocrine: NONE Past Surgical History Surgical History: non-contributory Assessment/Plan Mental Status Orientation: Confused Affect: Blunted Speech: Slurred Neuro-vegetative: Sleep Disturbance Mental Status Exam: Pt is sedated but able ot have conversation. He is oriented in self, place amd fairly oriented in date, He knows the president of [facility], Mild psychomotor reatrdation. Mood is described as feeling better, affect is somewhat blunted. Tought is foggy but imporving. No si/hi, denies voices, Ij is limited. He seems to be minimizing his drinking. However he reports he wants to quit,. Lab Results: Laboratory Tests 10/06/16 0400: Anion Gap 11, Estimated GFR > 60, Glucose 71, Calcium 8.9, Phosphorus 4.0, Magnesium 2.1, Total Bilirubin 1.4 H, AST 202 H, ALT 183 H, Albumin 4.0, CBC w Diff NO MAN DIFF REQ, RBC 4.22 L, MCV 98.4 H, MCH 32.6 H, RDW 13.7, MPV 7.8 , Gran % 69.8, Lymphocytes % 14.8 L, Monocytes % 10.2 H, Eosinophils % 4.2, Basophils % 1.0, Absolute Granulocytes 6.9 H, Absolute Lymphocytes 1.5, Absolute Monocytes 1.0 H, Absolute Eosinophils 0.4, Absolute Basophils 0.1, PUBS MCHC 33.1 Vital Signs Date Time Temp Pulse Resp B/P B/P Pulse O2 O2 Flow FiO2 Mean Ox Delivery Rate 10/06 0800 97.6 76 22 118/70 94 Room Air 10/06 0600 88 18 119/80 10/06 0400 95 Room Air 10/06 0000 97.2 100 18 130/80 10/06 0000 97.2 100 18 130/80 93 Room Air 10/06 0000 93 Room Air 10/05 2200 91 20 124/80 10/05 2000 98.2 90 20 124/80 10/05 2000 98 Room Air 10/05 1600 98.2 90 22 118/58 98 Room Air Diffential Diagnosis: Alcohol use disorder severe Delirium, due to alcohol withdrawal Bipolar duisorder? Impression: 41yo male in acute delirium,, seciondary to alcohol withdrawal. Mentation is improving. Provisional Treatment Plan: Continue with ativan taper adn CIWA Patient has not hamzah taking his psych meds. We will consider to re start them once he is clearing up.
--- NOTE | 2016-10-06 13:17 | PN- Att Addend ---
Attending Addendum Attending Brief Note 41-year-old male with past medical history significant for bipolar disorder, depression, she has affective disorder, I'll call abuse has been admitted to the ICU for alcohol detox. Unfortunately patient is still obtunded due to continuous IV Ativan drip which is now running at 4mg/hour because of the high CIWA score and has been unable to communicate. Vitals stable and Labs noted. Per more information from the family, patient has been recently admitted to [facility] in March 2016 where he was in the psych ICU and has been following up with the psychiatric. And his elevated CIWA score we'll continue to keep him on IV Ativan drip. His leukocytosis has came down with no signs of infections, no fever no white count, chest x-ray negative for aspiration pna. Please with the psych on board and replaces electrolytes. Should be kept off of his psych medications for now. Psych has evaluated the patient and in no specific recommendations regarding his psych medications for now unless he starts clearing up.
[2016-10-06 16:00] VITALS: BP 118/72
[2016-10-06 20:00] VITALS: BP 140/100
[2016-10-06 22:00] VITALS: BP 101/66
--- NOTE | 2016-10-06 23:24 | NUR ---
PATIENT IS RESTLESS,HAVING VISUAL HALLUCINATIONS.ATIVAN DRIP AT 13 MG/HR. MONITOR SINUS TACHYCARDIA AT RATE OF 112.SOFT WRIST RESTRAINTS IN PLACE TO PREVENT LINES AND ZUÑIGA FROM BEING DISPLACED.
[2016-10-07] VITALS (8 sets, daily range): BP systolic 99–148; BP diastolic 50–108
--- NOTE | 2016-10-07 07:23 | PN- Resident CRCU ---
Subjective HPI/CRCU Issues: Afebrile, hemodynamically stable, mildly tachycardic overnight, and saturating well on room air. Patient is laying on bed with bilateral UE soft restraint M Watson in place. Patient is alert and oriented X3. He is tremors but denies any headache, blurry vision, agitation, or visual hallucination. Patient denies any current active complaints. 24 Hour Events: Tmax: 98.1 HR: 76-120 BP: Lowest 104/61, highest 147/107 Is/Os yesterday: 4548/2765 CIWA score since yesterday 10 AM until today 10 AM:7,7,7,25,15,14,2,6,6,18,21. Objective Vital Signs & I&O Last 8 Hrs of Vitals and I&O: Vital Signs Date Time Temp Pulse Resp B/P B/P Pulse O2 O2 Flow FiO2 Mean Ox Delivery Rate 10/07 0750 99.0 88 18 99/50 97 Room Air 10/07 0600 85 18 104/61 10/07 0400 97.5 86 16 142/90 10/07 0400 95 Room Air 10/07 0200 86 18 127/69 10/07 0000 98.1 113 20 134/90 06/ 0000 98.1 113 20 134/90 93 Room Air / 0000 93 Room Air 10/06 2200 113 20 101/66 10/06 2000 98.1 114 18 140/100 10/07 1999 98 Room Air 10/06 1600 97.4 100 20 118/72 97 Room Air Intake & Output 10/07 1600 12 0800 10/07 0000 Intake Total 1044 1289 Output Total 1155 810 Balance -111 479 Intake, IV 1044 1289 Output, Urine 1155 810 Exam General Appearance: alert, awake, anxious Head: atraumatic, normal appearance, bilateral conjunctival congestion Respiratory: normal breath sounds, chest non-tender, no respiratory distress, lungs clear Cardiovascular: regular rate/rhythm Gastrointestinal: normal bowel sounds, soft, non-tender Extremities: normal inspection, no edema Cranial Nerves: normal speech, PERRL Current Medications: Current Medications Sig/Ravinder Start time Last Medication Dose Route Stop Time Status Admin Cyanocobalamin/ 1 BAG DAILY 10/05 1240 AC 10/07 Thiamine/Pyridoxine IV 0935 Dextrose/Water 1,000 ML Enoxaparin Sodium 40 MG DAILY 10/05 1000 AC 10/07 SC 0934 Erythromycin 1 FROILAN 4 TIMES/DAY 10/05 1800 AC 10/07 OPH 0934 Folic Acid 1 MG DAILY 10/08 1000 DC PO Lorazepam 100 MG Q7H 10/07 1500 AC Dextrose/Water 1,000 ML IV Lorazepam 100 MG Q12H 10/07 0000 AC 10/07 Dextrose/Water 1,000 ML IV 10/07 1459 0724 Lorazepam 50 MG Q12H 10/05 2100 DC 10/06 Dextrose/Water 500 ML IV 10/06 2359 0943 Lorazepam 1 MG Q4P PRN 10/05 2045 AC IV Lorazepam 2 MG Q2P PRN 10/04 2230 AC 10/05 PO 0230 Lorazepam 1 MG Q2P PRN 10/04 2230 AC PO Pantoprazole Sodium 40 MG DAILY 10/05 0600 AC 10/07 IV 0935 Thiamine HCl 100 MG DAILY 10/08 1000 DC PO Impression/Plan Impression/Problem List Impression: 41 yo male with hx of alcohol dependnce. unclear psych hx. He came to the ED after neighbors called police as he was having bizarre behavior. Patient admits drinking heavily, about half a bottle of vodka and a few beers, "a couple of time a week". He say his last drink was Friday09/30/16. Patient was started on IV Ativan and placed on stable protocol as his treatment of alcohol withdrawal. #Alcohol withdrawal * Continue IV Ativan and taper as tolerated * Continue CIWA scoring * Continue banana bag * Will DC Taylor * Continued follow psychiatric recommendations #Bacterial conjunctivitis * Continue erythromycin drop 4 times a day Regular diet DVT prophylaxis: Lovenox Full code Problem List: 1. Alcohol withdrawal syndrome Pain Ratin Tomorrow's Labs & Rationales: ICU bundle and CBC Plan DVT/Prophylaxis: mechanical, pharmacological
--- NOTE | 2016-10-07 11:13 | NUR ---
PT SAS IS 5-6, IV ATIVAN INCREASED TO 15MG PER HOUR. HE WAS ABLE TO EAT BREAKFAST. HE IS HALLUCINATING AND REPEATEDLY ATTEMPTING OOB.
--- NOTE | 2016-10-07 12:31 | PN- Psychiatry ---
See Addendum Assessment/Plan Impression: Identifying Info: 41-year-old male presents to [facility] emergency department on 10/05/2016 for altered mental status. He has a charted history of depression vs bipolar disorder vs schizoaffective disorder. He was admitted for alcohol withdrawal delirium. SUBJECTIVE At time of interview patient was receiving 15 mg of Ativan an hour but was able to participate in interview. He states "I hadn't slept in at least 4 days and started hallucinating." Patient reports for about 18 months he has had difficulty sleeping including difficulty falling asleep and middle the night awakening. He believes his primary issue has to do with sleep and is less concerned about alcohol use. Endorses 1 previous episode of delirium tremens "back in the [place] it is unclear when he lived in the [place]. Describes being started on amitriptyline in the past and having a marked increase in alertness and goal directed behavior. Reports he has responded well to quetiapine and propranolol for sleep and anxiety. He states this was prescribed by Dr. Dao of [facility] outpatient services who he only saw once. At present he is agreeable to intensive outpatient or residential treatment for alcohol use. Brief ROS Gait: Not observed Sleep: Poor Appetite: Adequate OBJECTIVE Mental Status Exam Presentation/Appearance: Patient in soft wrist restraints and Suzan vest. Cooperative with evaluation to the best of his ability. Hospital garb. Appears unkempt. Tremulous Orientation: Oriented to self, place, month and year not date. Sensorium: Awake and alert Eye contact: Fair Affect: Blunted Mood: Dysphoric Depression: Denies Anxiety: Denies Thought Content: - Denies SI/HI, AH/VH, PI. States and also believes they will not kill themselves. - Denies Hopeless/Helpless Thoughts Thought Process: Tangential at times, mild confusion Associations: Appropriate Speech: Normal tone and rate Judgment: Impaired Insight: Impaired Cognition: Memory: Short-term deficits, long-term appears more intact Attention/Concentration: Some impairments noted Fund of Knowledge: Adequate Abstractions: Did not assess MMSE: Did not assess Per nursing report the patient has been intermittently hallucinating reporting to seen drones, dogs, mice, and people in his room. He rambles incoherently at times but at others is somewhat more rational and redirectable. He was able to sit up and eat normal breakfast this morning despite high rate of Ativan. ASSESSMENT 41-year-old male presents with hallucinations and bizarre behavior and the context of alcohol withdrawal delirium. He has a reported history of mood disorder but his exact diagnosis is somewhat unclear at this time. His sleep disturbances as well as possible activation on amitriptyline may point to bipolar or schizoaffective diagnosis. It is unclear if he is currently experiencing a mood episode on top of delirium but if he is currently experiencing césar he may require inpatient psychiatric hospitalization once medically cleared. However at this time it would be prudent to wait until alcohol withdrawal delirium clears prior to evaluating for mood episode. Diagnosis Delirium due to alcohol withdrawal Alcohol use disorder severe Rule out unspecified depressive disorder versus unspecified bipolar disorder versus schizoaffective disorder A total of 45 minutes was spent with the patient with more than 50% of the time spent in counseling and/or coordination of care. Suggestion: 1. Continue CIWA, vitamin supplementation, and Ativan as required with goal to decrease total daily amount by 20% daily once symptoms are under control. If he remains at current rate he will recieve 360mg of ativan today, a gradual reduction of 72mg/day or 3mg/hr/day would be prudent. 2. Please repeat EKG. 3. If QTc is below 475 ms please start olanzapine 5 mg daily at bedtime. Consider olanzapine 2.5 mg q8h PO PRN for dangerous agitation as it may enable a decrease in the amount of benzo required. 4. Please initiate the following nonpharmacologic interventions: -Avoid nursing and medical procedures during sleep hours whenever possible - Cluster at night interventions that must be completed as much as possible to minimize sleep disruption - Decrease noise patient area during sleeping hours - Reduce lighting at night - Ensure patient has any sensory aids close by that he regularly uses 5. Once patient is clearer we will make determination of what level of psychiatric care would be recommended for this patient. At present, plan for residential or IOP substance tx. 6. Appreciate social work consult for disposition planning once patient is more stable. 7. We will continue to collect collateral to try to establish an accurate psychiatric diagnosis. Thank you for including psychiatry in this case we'll continue to follow. Subjective Subjective: as above Objective Last 24 Hrs of Vital Signs/I&O Current Medications Sig/Ravinder Start time Last Medication Dose Route Stop Time Status Admin Cyanocobalamin/ 1 BAG DAILY 10/05 1240 AC 10/07 Thiamine/Pyridoxine IV 0935 Dextrose/Water 1,000 ML Enoxaparin Sodium 40 MG DAILY 10/05 1000 AC 10/07 SC 0934 Erythromycin 1 FROILAN 4 TIMES/DAY 10/05 1800 AC 10/07 OPH 0934 Folic Acid 1 MG DAILY 10/08 1000 DC PO Lorazepam 100 MG Q7H 10/07 1500 AC Dextrose/Water 1,000 ML IV Lorazepam 100 MG Q12H 10/07 0000 AC 10/07 Dextrose/Water 1,000 ML IV 10/07 1459 0724 Lorazepam 50 MG Q12H 10/05 2100 DC 10/06 Dextrose/Water 500 ML IV 10/06 2359 0943 Lorazepam 1 MG Q4P PRN 10/05 2045 AC IV Lorazepam 2 MG Q2P PRN 10/04 2230 AC 10/05 PO 0230 Lorazepam 1 MG Q2P PRN 10/04 2230 AC PO Pantoprazole Sodium 40 MG DAILY 10/05 0600 AC 10/07 IV 0935 Thiamine HCl 100 MG DAILY 10/08 1000 DC PO Laboratory Tests 10/07/16 0400: Anion Gap 12, Estimated GFR > 60, Glucose 94, Calcium 9.3, Phosphorus 3.9, Magnesium 2.2, Total Bilirubin 1.0, AST 136 H, ALT 170 H, Albumin 4.1 Vital Signs Date Time Temp Pulse Resp B/P B/P Pulse O2 O2 Flow FiO2 Mean Ox Delivery Rate 10/07 0750 99.0 88 18 99/50 97 Room Air 10/07 0600 85 18 104/61 10/07 0400 97.5 86 16 142/90 10/07 0400 95 Room Air 10/07 0200 86 18 127/69 10/07 0000 98.1 113 20 134/90 10/07 0000 98.1 113 20 134/90 93 Room Air 10/07 0000 93 Room Air 10/06 2200 113 20 101/66 10/07 1999 98.1 114 18 140/100 10/07 1999 98 Room Air 10/06 1600 97.4 100 20 118/72 97 Room Air Intake & Output 10/07 1600 10/07 0800 10/07 0000 Intake Total 1044 1289 Output Total 1155 810 Balance -111 479 Intake, IV 1044 1289 Output, Urine 1155 810
--- NOTE | 2016-10-07 14:48 | NUR ---
sw referral received from MD Mary for ETOH abuse. Pt is in ICU and receiving 15mg of Ativan drip per hour. Pt's delirium has not cleared. Sw invited into see pt while Alyssia GREEN was assisting pt and his area. Pt was sitting in a chair with a poise and had just eaten some lunch which he was wearing due to having trouble with feeding himself due to tremors or shaking . Pt made eye contact and was cooperative, pleasent and calm. 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 Pt spoke of there being many people at the libertarian including his 2 middle school children and thei r mother who does not drink. He spoke of the police coming and nnot believing they were real vs libertarian of the libertarian. Pthas some awareness of where he was ; hospital. HE responded well to the nurse's ressurance. Pt was not able to participate in discharge planning. His needs will need to be assessed when his mental status improves. Pt may choose to return to [facility] pt. sw available upon request.
--- NOTE | 2016-10-07 15:32 | NUR ---
PT REMAINS ON ATIVAN DRIP WHICH WAS INCREASED TO 15 MG PER HOUR. WAS ABLE TO ASSIST PT OOB TO CHAIR FOR 45 MINUTES, HE WAS ABLE TO BATH HIMSELF AND REMAINS ABLE TO FEED HIMSELF MEALS. OCCASIONAL EPISODES OF AGITATION PERSIST. ZYPREXA STARTED.
--- NOTE | 2016-10-07 17:16 | NUR ---
PT BECAME SUDDENLY AGRESSIVE AND DANGEROUSLY AGITATED AFTER RECEIVING PO ZYPREXZA. HE WAS CAUGHT IN HIS SANDRO AND ATTEMPTING TO PULL SANDRO OVER HIS HEAD WHILE STRAINING AT THE WRIST RESTRAINTS. CODE 10 CALLED AND PTS BEHAVIOUR CONTINUED TO ESCALATE SO CODE 7 CALLED. PT WAS SECURED IN 4 POINT HARD RESTRAINTS. SITTER WAS OBTAINED. ICU RESIDENT AT BEDSIDE. ATIVAN BOLUS GIVEN. PHARMACY NOTIFIED OF ADVERSE REACTION TO THE ZYPREXA.
--- NOTE | 2016-10-07 21:02 | NUR ---
RECIEVED PT AWAKE, ALERT TO PLACE AND PERSON YEAR AND MONTH BUT NOT DAY OFF WEEK. FOLLOWS COMMANDS. PT WAS IN 4 POINT GEOVANNI, SWITCHED TO BILATERAL SOFT WRIST RESTRAINTS, EXPLAINED TO PT AND PT WAS IN AGREEANCE. SAFETY MONITOR REMAINS IN PLACE. HR SR ON MONITOR, ALL OTHER VITALS STABLE. PT TELLING STORIES THAT HAVE NO CONNECTION OR THAT MAKE SENSE. SKIN INTACT, PT IS USING URINAL BUT WAS INCONTINENT AT THIS TIME. OFFERED URINAL AFTER CLEANING BUT PT STATED HE WAS FINE. ATIVAN DRIP REMAINS AT 15MG/HR AND SAS IS 4. WILL MONITOR.
[2016-10-08] VITALS (12 sets, daily range): BP systolic 103–140; BP diastolic 61–104
--- NOTE | 2016-10-08 07:42 | PN- Resident CRCU ---
Subjective HPI/CRCU Issues: Afebrile, hemodynamically stable, heart rate within normal limits, and saturating well on 2 L of oxygen. She is laying in bed with bilateral upper extremity soft tissue strainers in place. He is alert and oriented X3. Looks mildly anxious but denies any current active complaints. Denies blurry vision, hallucination, dizziness, or hearing change. Patient now is on 12 mg of Ativan drip/H 24 Hour Events: Tmax: 98.1 HR: 70s BP: around 130s/110s CIWA score since yesterday 10 AM until today 10 AM: 21,20,22,30,7,8,7,6,7,6,10 Objective Vital Signs & I&O Last 8 Hrs of Vitals and I&O: Intake & Output 10/08 1600 Intake Total Output Total Balance Patient 78.925 kg Weight Exam General Appearance: alert, awake, anxious Head: atraumatic, normal appearance Respiratory: normal breath sounds, chest non-tender, no respiratory distress, lungs clear Cardiovascular: regular rate/rhythm Gastrointestinal: normal bowel sounds, soft, non-tender Extremities: normal inspection, no edema Current Medications: Current Medications Sig/Ravinder Start time Last Medication Dose Route Stop Time Status Admin Cyanocobalamin/ 1 BAG DAILY 10/05 1240 AC 10/08 Thiamine/Pyridoxine IV 1047 Dextrose/Water 1,000 ML Divalproex Sodium 250 MG BID 10/07 2200 AC 10/08 PO 1001 Enoxaparin Sodium 40 MG DAILY 10/05 1000 AC 10/08 SC 1001 Erythromycin 1 FROILAN 4 TIMES/DAY 10/05 1800 AC 10/08 OPH 1006 Folic Acid 1 MG DAILY 10/08 1000 DC PO Lorazepam 2 MG ONE ONE 10/07 1615 DC 10/07 IV 10/07 1616 1615 Lorazepam 100 MG Q7H 10/07 1500 AC 10/08 Dextrose/Water 1,000 ML IV 0537 Lorazepam 100 MG Q12H 10/07 0000 DC 10/07 Dextrose/Water 1,000 ML IV 10/07 1459 0724 Lorazepam 1 MG Q4P PRN 10/05 2045 AC IV Lorazepam 2 MG Q2P PRN 10/04 2230 AC 10/05 PO 0230 Lorazepam 1 MG Q2P PRN 10/04 2230 AC PO Olanzapine 5 MG AT BEDTIME 10/07 2200 CAN PO Olanzapine 2.5 MG Q8P PRN 10/07 1300 DC 10/07 PO 1449 Pantoprazole Sodium 40 MG DAILY 10/05 0600 AC 10/08 IV 1000 Potassium Chloride 40 MEQ ONCE ONE 10/08 1100 DC PO 10/08 1101 Thiamine HCl 100 MG DAILY 10/08 1000 DC PO Impression/Plan Impression/Problem List Impression: 41 yo male with hx of alcohol dependnce. unclear psych hx. He came to the ED after neighbors called police as he was having bizarre behavior. Patient admits drinking heavily, about half a bottle of vodka and a few beers, "a couple of time a week". He say his last drink was Friday09/30/16. Patient was started on IV Ativan and placed on stable protocol as his treatment of alcohol withdrawal. #Alcohol withdrawal * Continue IV Ativan drip and taper as tolerated * Continue CIWA scoring * Continue banana bag * Continued follow psychiatric recommendations #Bacterial conjunctivitis * Continue erythromycin drop 4 times a day Regular diet DVT prophylaxis: Lovenox Full code Problem List: 1. Alcohol withdrawal syndrome Pain Ratin Tomorrow's Labs & Rationales: CBC and ICU bundle Plan DVT/Prophylaxis: mechanical, pharmacological DVT/Prophylaxis: mechanical, pharmacological
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
--- NOTE | 2016-10-08 11:04 | NUR ---
Patient is alert and oriented to person and place- occasional visual hallucinations. Ativan gtt infusing at 12mg/hr SAS 3-4- Tremors noted when arms raised. He is able to follow commands and answer questions appropriately. On po Depakote. NSR on tele monitor, HR= 70-90's. SBP: 110-140's and he denies chest pain. On 2L nc, lungs clear and diminished at the bases. O2 sats stable at 96-99%. Abdomen is soft and non tender with + bowel sounds. He is tolerating a po diet well. On straight cath protocol and was last straight cathed at 0645. Skin appears intact with some dry patches noted. No s.s of pain and vitals are currently stable. A banana bag is also infusing. Psych in for follow-up. Pts Mom at the bedside and updated on POC. 1:1 sitter and soft wrist restraints remain in place. Will continue to closely monitor patient.
--- NOTE | 2016-10-08 15:30 | NUR ---
CIWA score 27 at this time, patient is confused and hallucinating- unable to be reoriented. He has had continued attempts of getting out of bed and is restless and anxious pulling at lines. Ativan gtt increased to 13mg/hr- A don vest and soft wrist restraints applied. Dr. Vazquez notified. 1:1 sitter remains at the bedside. Vitals currently stable. Will continue to closely monitor patient.
[2016-10-09] VITALS (10 sets, daily range): BP systolic 110–158; BP diastolic 59–110
[2016-10-09 05:11] LABS: ABSOLUTE BASOPHIL COUNT 0.1 /CUMM (0.0-0.2); ABSOLUTE EOSINOPHIL COUNT 0.4 /CUMM (0.0-0.7); ABSOLUTE GRANULOCYTE CT 3.1 /CUMM (1.4-6.5); ABSOLUTE LYMPH COUNT 1.5 /CUMM (1.2-3.4); ABSOLUTE MONOCYTE COUNT 0.9 /CUMM (0.10-0.60); BASOPHIL % 1.3 % (0.0-2.0); EOSINOPHIL % 7.4 % (0-5); GRANULOCYTE % 51.7 % (42.2-75.2); HEMATOCRIT 38.3 % (42-52); MEAN CORPUSCULAR HGB 32.8 PG (27.0-31.0); MEAN CORPUSCULAR HGB CONC 33.3 G/DL (33.0-37.0); MEAN CORPUSCULAR VOLUME 98.4 FL (80.0-94.0); MEAN PLATELET VOLUME 7.8 FL (7.4-10.4); PLATELET COUNT 325 /CUMM (130-400); RBC DISTRIBUTION WIDTH 13.5 % (11.5-14.5); RED BLOOD CELL CT 3.89 /CUMM (4.70-6.10); WHITE BLOOD CELL COUNT 6.1 /CUMM (4.8-10.8)
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
--- NOTE | 2016-10-09 12:45 | PN- Psychiatry ---
Assessment/Plan Impression: Identifying Info: 41-year-old male presents to [facility] emergency department on 10/05/2016 for altered mental status. He has a charted history of depression vs bipolar disorder vs schizoaffective disorder. He was admitted for alcohol withdrawal delirium. SUBJECTIVE Patient interviewed with social work Geneva Gutierrez LCSW. At time of interview patient was receiving 14 mg of Ativan an hour but was able to participate in interview. 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 Once redirected is able to discuss options for future ETOH treatment. Is agreeable to IOP post discharge. He has no complaints today. Brief ROS Gait: Remains in bed Sleep: Adequate Appetite: Adequate OBJECTIVE Mental Status Exam Presentation/Appearance: Calm. Cooperative with evaluation to best of his ability. Hospital garb. Appears unkempt. Orientation: x3 Sensorium: Awake and alert Eye contact: Fair Affect: Blunted Mood: Euthymic Depression: Denies Anxiety: Denies Thought Content: - Denies SI/HI, AH/VH, PI. States and also believes they will not kill themselves. - Denies Hopeless/Helpless Thoughts Thought Process: Primarily linear but some confusion and tangentiality are present. Associations: Appropriate Speech: Normal tone and rate Judgment: Impaired Insight: Impaired Cognition: Memory: Short-term deficits, long-term appears more intact Attention/Concentration: Some impairments noted Fund of Knowledge: Adequate Abstractions: Did not assess MMSE: Did not assess ASSESSMENT 41-year-old male presents with hallucinations and bizarre behavior and the context of alcohol withdrawal delirium. He has a reported history of mood disorder but his exact diagnosis is somewhat unclear at this time. His sleep disturbances as well as possible activation on amitriptyline may point to bipolar or schizoaffective diagnosis. It is unclear if he is currently experiencing a mood episode on top of delirium but if he is currently experiencing césar he may require inpatient psychiatric hospitalization once medically cleared. However at this time it would be prudent to wait until alcohol withdrawal delirium clears prior to evaluating for mood episode. Diagnosis Delirium due to alcohol withdrawal Alcohol use disorder severe Rule out unspecified depressive disorder versus unspecified bipolar disorder versus schizoaffective disorder A total of 30 minutes was spent with the patient with more than 50% of the time spent in counseling and/or coordination of care. Suggestion: 1. Continue CIWA, vitamin supplementation, and Ativan as required with goal to decrease total daily amount by 20% daily once symptoms are under control. 2. Continue Depakote at 250mg BID with plan to titrate based on level drawn tomorrow AM and tolerability. Continue to montior LFTs. 3. We have ordered a VPA level on AM of 10/10/16 prior to first dose of mediction. 4. Please continue the following nonpharmacologic interventions: -Avoid nursing and medical procedures during sleep hours whenever possible - Cluster at night interventions that must be completed as much as possible to minimize sleep disruption - Decrease noise patient area during sleeping hours - Reduce lighting at night - Ensure patient has any sensory aids close by that he regularly uses 5. Appreciate social work assistance for disposition planning, at present plan for IOP. Thank you for including psychiatry in this case we'll continue to follow. Subjective Subjective: as above Objective Last 24 Hrs of Vital Signs/I&O Current Medications Sig/Ravinder Start time Last Medication Dose Route Stop Time Status Admin Cyanocobalamin/ 1 BAG DAILY 10/05 1240 AC 10/09 Thiamine/Pyridoxine IV 0938 Dextrose/Water 1,000 ML Divalproex Sodium 250 MG BID 10/07 2200 AC 10/09 PO 0938 Enoxaparin Sodium 40 MG DAILY 10/05 1000 AC 10/09 SC 0938 Erythromycin 1 FROILAN 4 TIMES/DAY 10/05 1800 AC 10/09 OPH 0944 Hydrocortisone 1 FROILAN BID 10/09 1132 AC EXT Lorazepam 100 MG Q7H 10/07 1500 AC 10/09 Dextrose/Water 1,000 ML IV 0524 Lorazepam 1 MG Q4P PRN 10/05 2045 AC IV Lorazepam 2 MG Q2P PRN 10/04 2230 AC 10/05 PO 0230 Lorazepam 1 MG Q2P PRN 10/04 2230 AC PO Pantoprazole Sodium 40 MG DAILY 10/05 0600 AC 10/09 IV 0938 Laboratory Tests 10/09/16 0352: Anion Gap 11, Estimated GFR > 60, Glucose 108 H, Calcium 8.9, Phosphorus 4.2, Magnesium 1.9, Total Bilirubin 0.4, AST 89 H, ALT 138 H, Albumin 3.4 L, CBC w Diff NO MAN DIFF REQ, RBC 3.89 L, MCV 98.4 H, MCH 32.8 H, RDW 13.5, MPV 7.8, Gran % 51.7, Lymphocytes % 24.4, Monocytes % 15.2 H, Eosinophils % 7.4 H, Basophils % 1.3, Absolute Granulocytes 3.1, Absolute Lymphocytes 1.5, Absolute Monocytes 0.9 H, Absolute Eosinophils 0.4, Absolute Basophils 0.1, PUBS MCHC 33.3 Vital Signs Date Time Temp Pulse Resp B/P B/P Pulse O2 O2 Flow FiO2 Mean Ox Delivery Rate 10/09 1200 98.2 100 20 129/75 10/09 1200 96 Room Air Room Air 10/09 1000 98.7 94 15 123/74 10/09 0800 98.7 74 18 110/60 10/09 0800 96 Nasal 2.0L Cannula 10/09 0800 98.7 74 18 110/60 96 Nasal 2.0L Cannula 10/09 0600 98.0 83 18 119/80 10/09 0400 98.5 76 15 113/59 10/09 0400 96 Nasal 2.0L Cannula 10/09 0000 97.8 67 12 158/110 10/09 0000 96 Nasal 2.0L Cannula 10/09 0000 97.8 67 12 158/110 96 Nasal 2.0L Cannula 10/08 2200 76 15 121/85 10/09 1999 98.5 88 18 138/104 10/08 2000 99 Nasal 2.0L Cannula 10/08 1800 98 22 140/78 10/08 1700 99 20 135/77 10/08 1600 98.8 88 20 122/96 99 Nasal 2.0L Cannula 10/08 1600 99 Nasal 2.0L Cannula 10/08 1400 82 22 119/78 Intake & Output 10/09 1600 10/09 0800 10/09 0000 Intake Total 872 2225 Output Total 800 2350 Balance 72 -125 Intake, IV 872 1865 Intake, Oral 0 360 Number 0 0 Bowel Movements Output, Urine 800 2350
--- NOTE | 2016-10-09 12:47 | NUR ---
Patient is more appropriate, following commands, less restless/agitated, and not trying to ambulate unsafely or pull out lines and drains. Sitter still at bedside since patient is occasionally forgetful and not using the call loyd but don and wrist restraints d/c'd at 1200. Patient having purposeful conversation and talking about his specific psych meds he took and home and how much/often he drinks. He spoke about his ex girlfriend and her profession. This RN spoke to patient's mother over the phone. She states that the patient's speech is more clear but his thoughts are not organized and still confused. Family given emotional reassurance. Patient still on Ativan 13 mg/hr. SAS=4. CIWA<5 for occasional tremors, anxiety, and confusion to time. Bed alarm in place and sitter at bedside.
--- NOTE | 2016-10-09 13:45 | NUR ---
Visited with patient this am. Still on Ativan drip at 14mg/hour. In spite of this, he is able to sit up in bed and have a conversation, which at times, becomes tangential and disorganized. Met with patient along with Mick Cobb APRN from psychiatry. Please see his note from today as well. Patient still experiencing withdrawal which needs complete resolution prior to decision being made re: psychiatric care. At this time, the patient is agreeable to IOP, and we will be available to assist with securing an appointment at discharge. Follow.
--- NOTE | 2016-10-09 16:00 | NUR ---
ASSUMED CARE OF PATIENT. PATIENT ALERT CALM AND COOPERATIVE. SITTER AT BEDSIDE. PATIENT ALERT SPEAKING WITH MOTHER ON CELL PHONE. PATIENT INTRODUCED THIS NURSE TO MOTHER VIA FACETIME AND BEHAVING APPROPRIATELY. MOVES ALL EXTREMITIES. PATIENT ON ROOM AIR AND LUNGS CLEAR. MONITOR NSR WITHOUT ECTOPY. ABDOMEN SOFT AND NON TENDER, VOIDING WELL. SKIN INTACT.
[2016-10-10] VITALS (13 sets, daily range): BP systolic 100–151; BP diastolic 50–108
--- NOTE | 2016-10-10 00:45 | NUR ---
PT AROUSABLE, DENIES PAIN AT THIS TIME. ATIVAN GTT AT 13MG/H. HE HAS A 1:1 SITTER. NSR 70'S, MANUAL BP 110/60. SATURATION 92% ON RA, LUNGS SOUND CLEAR. ABDOMEN SOFT, NORMOACTIVE BS.
--- NOTE | 2016-10-10 08:23 | PN- Resident CRCU ---
Subjective HPI/CRCU Issues: Afebrile, Hemodynamically stable, HR within normal limits, and saturating well on room air. off soft restraints was DC'd. He is alert and oriented X3. Patient is under the impression that he will start working at [employer]. He denies any hallucination, headache, tremors, or blurry vision. He denies any other current active complaints Patient now is on 13 mg of Ativan drip/H Objective Vital Signs & I&O Last 8 Hrs of Vitals and I&O: Vital Signs Date Time Temp Pulse Resp B/P B/P Pulse O2 O2 Flow FiO2 Mean Ox Delivery Rate 10/10 0600 73 18 100/50 10/10 0400 97.0 67 18 122/64 10/10 0400 96 Room Air 10/10 0200 70 20 151/80 10/10 0000 97.9 70 18 110/60 10/10 0000 92 Room Air 10/10 0000 97.9 70 18 110/60 92 Room Air 10/09 2200 98 16 125/79 10/09 2000 99.2 106 18 132/86 10/09 1600 99.3 90 15 130/94 10/09 1600 98 Room Air 10/09 1600 99.3 90 20 130/94 98 Room Air 10/09 1400 98.4 100 20 118/84 10/09 1200 98.2 100 20 129/75 10/09 1200 96 Room Air Room Air 10/09 1000 98.7 94 15 123/74 Intake & Output 10/10 1600 10/10 0800 10/10 0000 Intake Total 1110 2495 Output Total 1800 Balance 1110 695 Intake, IV 1010 1415 Intake, Oral 100 1080 Number 1 Bowel Movements Output, Urine 1800 Exam General Appearance: well developed/nourished, no apparent distress, alert, awake , anxious Head: atraumatic, normal appearance Respiratory: normal breath sounds, chest non-tender, no respiratory distress, lungs clear Cardiovascular: regular rate/rhythm Gastrointestinal: normal bowel sounds, soft, non-tender Extremities: normal inspection Current Medications: Current Medications Sig/Ravinder Start time Last Medication Dose Route Stop Time Status Admin Chlordiazepoxide HCl 25 MG TID 10/10 1000 AC PO Cyanocobalamin/ 1 BAG DAILY 10/05 1240 AC 10/09 Thiamine/Pyridoxine IV 0938 Dextrose/Water 1,000 ML Divalproex Sodium 250 MG BID 10/07 2200 AC 10/09 PO 2128 Docusate Sodium 100 MG DAILY PRN 10/09 1300 AC PO Enoxaparin Sodium 40 MG DAILY 10/05 1000 AC 10/09 SC 0938 Erythromycin 1 FROILAN 4 TIMES/DAY 10/05 1800 AC 10/09 OPH 2128 Hydrocortisone 1 FROILAN BID 10/09 1132 AC 10/09 EXT 2128 Lorazepam 100 MG Q7H 10/07 1500 AC 10/10 Dextrose/Water 1,000 ML IV 0630 Lorazepam 1 MG Q4P PRN 10/05 2045 AC IV Lorazepam 2 MG Q2P PRN 10/04 2230 AC 10/05 PO 0230 Lorazepam 1 MG Q2P PRN 10/04 2230 AC PO Pantoprazole Sodium 40 MG DAILY 10/05 0600 AC 10/09 IV 0938 Patient Medication 1 ED .STK-MED ONE 10/09 1414 DC Teaching ED 10/09 1415 Potassium Chloride 40 MEQ ONCE ONE 10/09 1330 DC 10/09 PO 10/09 1331 1533 Senna 187 MG AT BEDTIME PRN 10/09 1300 AC 10/09 PO 1533 Impression/Plan Impression/Problem List Impression: 41 yo male with hx of alcohol dependnce. unclear psych hx. He came to the ED after neighbors called police as he was having bizarre behavior. Patient admits drinking heavily, about half a bottle of vodka and a few beers, "a couple of time a week". He say his last drink was Friday09/30/16. Patient was started on IV Ativan and placed on stable protocol as his treatment of alcohol withdrawal. #Alcohol withdrawal * Continue IV Ativan drip 13mg/h, we'll try to tailor by 20% daily * We will start librium 25 mg TID, to help the Ativan drip taper. * Continue CIWA scoring * Continue banana bag * Continued follow psychiatric recommendations #Bacterial conjunctivitis * Continue erythromycin drop 4 times a day, today is day 4 Regular diet DVT prophylaxis: Lovenox Full code Problem List: 1. Alcohol withdrawal syndrome Pain Ratin Tomorrow's Labs & Rationales: bep and cbc Plan DVT/Prophylaxis: mechanical, pharmacological
--- NOTE | 2016-10-10 08:47 | PN- CRCU ---
Subjective HPI/Critical Care Issues: The patient is awake and conversant. He appears to be confabulating and reports he was hired at [employer] for a job. He has little insight with regard to his alcohol withdrawal. He remains on 13 mg/h with controlled CIWA scores. Objective Current Medications: Current Medications Sig/Ravinder Start time Last Medication Dose Route Stop Time Status Admin Chlordiazepoxide HCl 25 MG TID 10/10 1000 AC PO Cyanocobalamin/ 1 BAG DAILY 10/05 1240 AC 10/09 Thiamine/Pyridoxine IV 0938 Dextrose/Water 1,000 ML Divalproex Sodium 250 MG BID 10/07 2200 AC 10/09 PO 2128 Docusate Sodium 100 MG DAILY PRN 10/09 1300 AC PO Enoxaparin Sodium 40 MG DAILY 10/05 1000 AC 10/09 SC 0938 Erythromycin 1 FROILAN 4 TIMES/DAY 10/05 1800 AC 10/09 OPH 2128 Hydrocortisone 1 FROILAN BID 10/09 1132 AC 10/09 EXT 2128 Lorazepam 100 MG Q7H 10/07 1500 AC 10/10 Dextrose/Water 1,000 ML IV 0630 Lorazepam 1 MG Q4P PRN 10/05 2045 AC IV Lorazepam 2 MG Q2P PRN 10/04 2230 AC 10/05 PO 0230 Lorazepam 1 MG Q2P PRN 10/04 2230 AC PO Pantoprazole Sodium 40 MG DAILY 10/05 0600 AC 10/09 IV 0938 Patient Medication 1 ED .STK-MED ONE 10/09 1414 DC Teaching ED 10/09 1415 Potassium Chloride 40 MEQ ONCE ONE 10/09 1330 DC 10/09 PO 10/09 1331 1533 Senna 187 MG AT BEDTIME PRN 10/09 1300 AC 10/09 PO 1533 Vital Signs & I&O Last 24 Hrs of Vitals and I&O: Vital Signs Date Time Temp Pulse Resp B/P B/P Pulse O2 O2 Flow FiO2 Mean Ox Delivery Rate 10/10 0600 73 18 100/50 10/10 0400 97.0 67 18 122/64 10/10 0400 96 Room Air 10/10 0200 70 20 151/80 10/10 0000 97.9 70 18 110/60 / 0000 92 Room Air 10/10 0000 97.9 70 18 110/60 92 Room Air 10/09 2200 98 16 125/79 10/09 2000 99.2 106 18 132/86 10/09 1600 99.3 90 15 130/94 10/09 1600 98 Room Air 10/09 1600 99.3 90 20 130/94 98 Room Air 10/09 1400 98.4 100 20 118/84 10/09 1200 98.2 100 20 129/75 10/09 1200 96 Room Air Room Air 10/09 1000 98.7 94 15 123/74 Intake & Output 10/10 1600 10/10 0800 10/10 0000 Intake Total 1110 2495 Output Total 1800 Balance 1110 695 Intake, IV 1010 1415 Intake, Oral 100 1080 Number 1 Bowel Movements Output, Urine 1800 Exam General Appearance: well developed/nourished, no apparent distress, alert, awake , anxious Head: atraumatic, normal appearance Respiratory: normal breath sounds, chest non-tender, no respiratory distress, lungs clear Cardiovascular: regular rate/rhythm Gastrointestinal: normal bowel sounds, soft, non-tender Extremities: normal inspection Results Last 24 Hrs of Lab Results: Laboratory Tests 10/10/16 0345: Anion Gap 11, Estimated GFR > 60, BUN/Creatinine Ratio 8.3, Valproic Acid 24.2 L Impression/Plan Impression/Plan Impression/Plan: 1. Alcohol withdrawal, with history of EtOH dependence. 2. Hallucinations. 3. History of mood disorder. Recommendations: * Continue to wean Ativan drip down to off if able. * Continue CIWA monitoring. * MVI/Thiamine/Folate. * Contine Depakote. * Follow-up psychiatry recommendations. * DVT prophylaxis at all times. * Continue GI prophylaxis. * Will continue Librium. * Avoid oversedation. * Continue all supportive care.
--- NOTE | 2016-10-10 14:40 | PN- Psychiatry ---
Assessment/Plan Impression: Identifying Info: 41-year-old male presents to [facility] emergency department on 10/05/2016 for altered mental status. He has a charted history of depression vs bipolar disorder vs schizoaffective disorder. He was admitted for alcohol withdrawal delirium. SUBJECTIVE Of note patient was receiving 7 mg an hour of Ativan during interview.Patient reports "Overall I'm pretty good." Expresses some frustration at inability to ambulate well but verbalizes understanding the need to pace himself and his recovery. No other complaint, states he feels more alert with change in medication. Brief ROS Gait: Ambulated with PT and a walker today Sleep: Adequate Appetite: Adequate OBJECTIVE Mental Status Exam Presentation/Appearance: Calm. Cooperative with evaluation to best of his ability. Hospital garb. Appears unkempt. Orientation: x3 Sensorium: Awake and alert Eye contact: Fair Affect: Wider range, less blunted Mood: Euthymic Depression: Denies Anxiety: Denies Thought Content: - Denies SI/HI, AH/VH, PI. States and also believes they will not kill themselves. - Denies Hopeless/Helpless Thoughts Thought Process: Linear, decrease in tangentality Associations: Appropriate Speech: Normal tone and rate Judgment: Fair Insight: Fair Cognition: Memory: Short-term deficits, long-term appears more intact Attention/Concentration: Some impairments noted but improving Fund of Knowledge: Adequate Abstractions: Did not assess MMSE: Did not assess ASSESSMENT 41-year-old male presents with hallucinations and bizarre behavior and the context of alcohol withdrawal delirium. He has a reported history of mood disorder but his exact diagnosis is somewhat unclear at this time. His sleep disturbances as well as possible activation on amitriptyline may point to bipolar or schizoaffective diagnosis. It is unclear if he is currently experiencing a mood episode on top of delirium but if he is currently experiencing césar he may require inpatient psychiatric hospitalization once medically cleared. However at this time it would be prudent to wait until alcohol withdrawal delirium clears prior to evaluating for mood episode. Diagnosis Delirium due to alcohol withdrawal Alcohol use disorder severe Rule out unspecified depressive disorder versus unspecified bipolar disorder versus schizoaffective disorder A total of 30 minutes was spent with the patient with more than 50% of the time spent in counseling and/or coordination of care. Suggestion: 1. Continue CIWA, vitamin supplementation, and Ativan as required with goal to decrease total daily amount by 20% daily once symptoms are under control. 2. Continue Depakote at 250mg BID will not titrate up for now as patient is in good behavioral control and their are no sx of césar. Continue to montior LFTs. 3. Appreciate social work assistance for disposition planning, at present plan for IOP. Thank you for including psychiatry in this case we'll continue to follow. Subjective Subjective: as above Objective Last 24 Hrs of Vital Signs/I&O Current Medications Sig/Ravinder Start time Last Medication Dose Route Stop Time Status Admin Chlordiazepoxide HCl 25 MG TID 10/10 1000 AC 10/10 PO 1054 Cyanocobalamin/ 1 BAG DAILY 10/05 1240 DC 10/09 Thiamine/Pyridoxine IV 0938 Dextrose/Water 1,000 ML Divalproex Sodium 250 MG BID 10/07 2200 AC 10/10 PO 1055 Docusate Sodium 100 MG DAILY PRN 10/09 1300 AC PO Enoxaparin Sodium 40 MG DAILY 10/05 1000 AC 10/10 SC 1056 Erythromycin 1 FROILAN 4 TIMES/DAY 10/05 1800 AC 10/10 OPH 1054 Folic Acid 1 MG DAILY 10/10 1000 AC 10/10 PO 1055 Hydrocortisone 1 FROILAN BID 10/09 1132 AC 10/10 EXT 1053 Lorazepam 100 MG Q7H 10/07 1500 AC 10/10 Dextrose/Water 1,000 ML IV 0630 Lorazepam 1 MG Q4P PRN 10/05 2045 AC IV Lorazepam 2 MG Q2P PRN 10/04 2230 AC 10/05 PO 0230 Lorazepam 1 MG Q2P PRN 10/04 2230 AC PO Multivitamins 1 TAB DAILY 10/10 1000 AC 10/10 PO 1055 Pantoprazole Sodium 40 MG DAILY 10/05 0600 AC 10/10 IV 1056 Senna 187 MG AT BEDTIME PRN 10/09 1300 AC 10/09 PO 1533 Thiamine HCl 100 MG DAILY 10/10 1000 AC 10/10 PO 1055 Laboratory Tests 10/10/16 0345: Anion Gap 11, Estimated GFR > 60, BUN/Creatinine Ratio 8.3, Valproic Acid 24.2 L Vital Signs Date Time Temp Pulse Resp B/P B/P Pulse O2 O2 Flow FiO2 Mean Ox Delivery Rate 10/10 918 98.8 80 17 118/84 97 Room Air 10/10 0800 98.8 80 17 118/84 10/10 0800 97 Room Air 10/10 0600 73 18 100/50 10/10 0400 97.0 67 18 122/64 10/10 0400 96 Room Air 10/10 0200 70 20 151/80 10/10 0000 97.9 70 18 110/60 10/10 0000 92 Room Air 10/10 0000 97.9 70 18 110/60 92 Room Air 10/09 2200 98 16 125/79 10/10 1999 99.2 106 18 132/86 10/09 1600 99.3 90 15 130/94 10/09 1600 98 Room Air 10/09 1600 99.3 90 20 130/94 98 Room Air Intake & Output 10/10 1600 10/10 0800 10/10 0000 Intake Total 1110 2495 Output Total 1800 Balance 1110 695 Intake, IV 1010 1415 Intake, Oral 100 1080 Number 1 Bowel Movements Output, Urine 1800
[2016-10-11] VITALS (10 sets, daily range): BP systolic 91–142; BP diastolic 47–110
[2016-10-11 05:32] LABS: ABSOLUTE BASOPHIL COUNT 0.1 /CUMM (0.0-0.2); ABSOLUTE EOSINOPHIL COUNT 0.4 /CUMM (0.0-0.7); ABSOLUTE GRANULOCYTE CT 3.8 /CUMM (1.4-6.5); ABSOLUTE LYMPH COUNT 1.8 /CUMM (1.2-3.4); ABSOLUTE MONOCYTE COUNT 0.9 /CUMM (0.10-0.60); EOSINOPHIL % 5.7 % (0-5); GRANULOCYTE % 53.7 % (42.2-75.2); HEMATOCRIT 41.1 % (42-52); MEAN CORPUSCULAR HGB 32.7 PG (27.0-31.0); MEAN CORPUSCULAR HGB CONC 33.3 G/DL (33.0-37.0); MEAN CORPUSCULAR VOLUME 98.1 FL (80.0-94.0); MEAN PLATELET VOLUME 7.8 FL (7.4-10.4); PLATELET COUNT 373 /CUMM (130-400); RBC DISTRIBUTION WIDTH 13.4 % (11.5-14.5); RED BLOOD CELL CT 4.19 /CUMM (4.70-6.10)
--- NOTE | 2016-10-11 07:31 | PN- Resident CRCU ---
Subjective HPI/CRCU Issues: Afebrile, Hemodynamically stable, HR within normal limits, and saturating well on room air. off soft restraints. He is alert and oriented X3, however he can hear his mom voice talking to us(pituitary hallucination). He denies headache, tremors, or blurry vision. Patient now is 1 mg Ativan drip Objective Vital Signs & I&O Last 8 Hrs of Vitals and I&O: Vital Signs Date Time Temp Pulse Resp B/P B/P Pulse O2 O2 Flow FiO2 Mean Ox Delivery Rate 10/11 1200 98.3 74 12 118/82 10/11 1200 95 Room Air 10/11 1000 98.0 94 13 115/74 10/11 0800 98.0 77 10 136/90 10/11 0800 96 Room Air 10/11 0800 98.0 77 10 136/90 94 Room Air 10/11 0600 97.5 80 18 107/65 10/11 0400 97.3 75 18 118/100 / 0400 96 Room Air 10/11 0000 98.2 71 20 142/110 /16 0000 99 Room Air 10/11 0000 98.2 71 71 142/110 99 Room Air / 2200 98.0 72 16 142/98 /15 2000 98.0 82 20 148/108 / 2000 100 Room Air /15 1800 97.8 82 17 135/100 /15 1600 97.8 80 20 128/82 06/15 1600 97.8 80 20 128/82 98 Room Air / 1400 98.7 82 31 122/84 Intake & Output 10/11 1600 /16 0800 10/11 0000 Intake Total 400 1160 Output Total 800 480 Balance -400 680 Intake, IV 400 560 Intake, Oral 0 600 Number 0 0 Bowel Movements Output, Urine 800 480 Exam General Appearance: well developed/nourished, no apparent distress, alert, awake , comfortable Head: atraumatic, normal appearance Respiratory: normal breath sounds, chest non-tender, no respiratory distress, quiet respiration Cardiovascular: regular rate/rhythm Extremities: normal inspection, no edema Current Medications: Current Medications Sig/Ravinder Start time Last Medication Dose Route Stop Time Status Admin Chlordiazepoxide HCl 25 MG TID 10/10 1000 AC 10/11 PO 1018 Divalproex Sodium 250 MG BID 10/07 2200 AC 06/16 PO 1017 Docusate Sodium 100 MG DAILY PRN 10/09 1300 AC PO Enoxaparin Sodium 40 MG DAILY 10/05 1000 AC 10/11 SC 1017 Erythromycin 1 FROILAN 4 TIMES/DAY 10/05 1800 AC 10/10 OPH 2129 Folic Acid 1 MG DAILY 10/10 1000 AC 10/11 PO 1016 Hydrocortisone 1 FROILAN BID 10/09 1132 AC 10/11 EXT 1019 Lorazepam 100 MG Q24H 10/11 0430 AC Dextrose/Water 1,000 ML IV Lorazepam 100 MG Q7H 10/07 1500 DC 10/10 Dextrose/Water 1,000 ML IV 1551 Lorazepam 1 MG Q4P PRN 10/05 2045 AC IV Lorazepam 2 MG Q2P PRN 10/04 2230 AC 10/05 PO 0230 Lorazepam 1 MG Q2P PRN 10/04 2230 AC PO Multivitamins 1 TAB DAILY 10/10 1000 AC 10/11 PO 1017 Pantoprazole Sodium 40 MG DAILY 10/05 0600 AC 10/11 IV 1016 Senna 187 MG AT BEDTIME PRN 10/09 1300 AC 10/09 PO 1533 Thiamine HCl 100 MG DAILY 10/10 1000 AC 10/11 PO 1017 Impression/Plan Impression/Problem List Impression: 41 yo male with hx of alcohol dependnce. unclear psych hx. He came to the ED after neighbors called police as he was having bizarre behavior. Patient admits drinking heavily, about half a bottle of vodka and a few beers, "a couple of time a week". He say his last drink was Friday09/30/16. Patient was started on IV Ativan and placed on stable protocol as his treatment of alcohol withdrawal. #Alcohol withdrawal * We will DC Ativan drip * We will continue librium 25 mg TID * Contine Depakote. * Continue CIWA scoring * On oral folic acid, thiamine, multivitamin. * Continued follow psychiatric recommendations in regard of discharge plan #Bacterial conjunctivitis * Continue erythromycin drop 4 times a day, today is day 4 Regular diet DVT prophylaxis: Lovenox Full code Problem List: 1. Alcohol withdrawal syndrome Pain Ratin Tomorrow's Labs & Rationales: BEP Plan DVT/Prophylaxis: mechanical, pharmacological
--- NOTE | 2016-10-11 08:59 | PN- CRCU ---
Subjective HPI/Critical Care Issues: The patient is awake and delusional. He reports that his mother is sending him messages and he is hallucinating about this. His Ativan drip has been turned off. The patient is not able to offer any complaints. Objective Current Medications: Current Medications Sig/Ravinder Start time Last Medication Dose Route Stop Time Status Admin Chlordiazepoxide HCl 25 MG TID 10/10 1000 AC 10/10 PO 2128 Divalproex Sodium 250 MG BID 10/07 2200 AC 10/10 PO 2128 Docusate Sodium 100 MG DAILY PRN 10/09 1300 AC PO Enoxaparin Sodium 40 MG DAILY 10/05 1000 AC 10/10 SC 1056 Erythromycin 1 FROILAN 4 TIMES/DAY 10/05 1800 AC 10/10 OPH 2129 Folic Acid 1 MG DAILY 10/10 1000 AC 10/10 PO 1055 Hydrocortisone 1 FROILAN BID 10/09 1132 AC 10/10 EXT 2129 Lorazepam 100 MG Q24H 10/11 0430 AC Dextrose/Water 1,000 ML IV Lorazepam 100 MG Q7H 10/07 1500 DC 10/10 Dextrose/Water 1,000 ML IV 1551 Lorazepam 1 MG Q4P PRN 10/05 2045 AC IV Lorazepam 2 MG Q2P PRN 10/04 2230 AC 10/05 PO 0230 Lorazepam 1 MG Q2P PRN 10/04 2230 AC PO Multivitamins 1 TAB DAILY 10/10 1000 AC 10/10 PO 1055 Pantoprazole Sodium 40 MG DAILY 10/05 0600 AC 10/10 IV 1056 Senna 187 MG AT BEDTIME PRN 10/09 1300 AC 10/09 PO 1533 Thiamine HCl 100 MG DAILY 10/10 1000 AC 10/10 PO 1055 Vital Signs & I&O Last 24 Hrs of Vitals and I&O: Vital Signs Date Time Temp Pulse Resp B/P B/P Pulse O2 O2 Flow FiO2 Mean Ox Delivery Rate 10/11 0800 98.0 77 10 136/90 10/11 0600 97.5 80 18 107/65 10/11 0400 97.3 75 18 118/100 10/11 0400 96 Room Air 10/11 0000 98.2 71 20 142/110 10/11 0000 99 Room Air 10/11 0000 98.2 71 71 142/110 99 Room Air 10/10 2200 98.0 72 16 142/98 06/15 2000 98.0 82 20 148/108 10/10 2000 100 Room Air 10/10 1800 97.8 82 17 135/100 10/10 1600 97.8 80 20 128/82 10/10 1600 97.8 80 20 128/82 98 Room Air 10/10 1400 98.7 82 31 122/84 10/10 1200 98.0 84 16 135/88 10/10 1200 97 Room Air 10/10 1000 98.8 80 16 122/79 10/10 0919 98.8 80 17 118/84 97 Room Air Intake & Output 10/11 1600 10/11 0800 10/11 0000 Intake Total 400 1160 Output Total 800 480 Balance -400 680 Intake, IV 400 560 Intake, Oral 0 600 Number 0 0 Bowel Movements Output, Urine 800 480 Exam General Appearance: well developed/nourished, no apparent distress, alert, awake , anxious Head: atraumatic, normal appearance Respiratory: normal breath sounds, chest non-tender, no respiratory distress, lungs clear Cardiovascular: regular rate/rhythm Gastrointestinal: normal bowel sounds, soft, non-tender Extremities: normal inspection Results Last 24 Hrs of Lab Results: Laboratory Tests 10/11/16 0432: Anion Gap 10, Estimated GFR > 60, Glucose 76, Calcium 9.4, Phosphorus 4.5, Magnesium 1.8, Total Bilirubin 0.3, AST 57, ALT 114 H, Albumin 3.5, CBC w Diff MAN DIFF ORDERED, RBC 4.19 L, MCV 98.1 H, MCH 32.7 H, RDW 13.4, MPV 7.8, Gran % 53.7, Lymphocytes % 25.1, Monocytes % 13.5 H, Eosinophils % 5.7 H, Basophils % 2.0, Absolute Granulocytes 3.8, Segmented Neutrophils 41 L, Band Neutrophils 1, Absolute Lymphocytes 1.8, Lymphocytes 38, Monocytes 13 H, Absolute Monocytes 0.9 H, Eosinophils 6 H, Absolute Eosinophils 0.4, Basophils 1, Absolute Basophils 0.1, Platelet Estimate ADEQUATE, Polychromasia 1+, Ovalocytes FEW, Stomatocytes FEW, PUBS MCHC 33.3, Fld Total RBCs Counted 100 Impression/Plan Impression/Plan Impression/Plan: 1. Alcohol withdrawal, with history of EtOH dependence. 2. Hallucinations. 3. History of mood disorder. Recommendations: * Continue to wean Ativan drip down to off if able. * Continue CIWA monitoring. * MVI/Thiamine/Folate. * Contine Depakote. * Follow-up psychiatry recommendations. The patient would likely need inpatient psych. * DVT prophylaxis at all times. * Continue GI prophylaxis. * Will continue Librium. * Avoid oversedation. * Continue all supportive care. * Will downgrade once off ativan for a significant period of time.
--- NOTE | 2016-10-11 09:12 | NUR ---
RESUMED PT CARE 729. AWOKE PT FOR AM ASSESSMENT. OX3. MILD HALLUCINATIONS, ABLE TO REORIENT. CMS X 4, GOOD STRENGTH. CIWA 4. SAS 4. ATIVAN AT 2MG, TITRATED TO 1MG TO OFF. SITTER AT BEDSIDE TO MONITOR PT SAFETY. VSS. NSR 70'S BP 136/90. ON RA, LUNGS CLR, SATING 94%+. PT CONSUMED 100% REGULAR DIET FOR BREAKFAST W GOOD APPETITE. -N/V/D. ABDOMEN SOFT W + BS. PT AMBULATE TO W ASSISST OF 1 AND RW FOR SUPPORT. GAIT UNSTEADY. ABLE TO VOID/BM WITHOUT COMPLAINT. NO PAIN. EDUCATED ON POC.
--- NOTE | 2016-10-11 14:42 | PN- Psychiatry ---
Assessment/Plan Impression: Identifying Info: 41-year-old male presents to [facility] emergency department on 10/05/2016 for altered mental status. He has a charted history of depression vs bipolar disorder vs schizoaffective disorder. He was admitted for alcohol withdrawal delirium. SUBJECTIVE Patient states "I'm good." Reports he is looking forward to being done with benzo taper and going to treatment. Verbalizes need for continued treatment. Endorses confusion this morning which she contributes to being woken up from sleep. "I thought it was calling my mom and she wasn't getting back to me then I slowly realized, oh wait, I'm in the hospital." Brief ROS Gait: Ambulated with PT and a walker today Sleep: Adequate Appetite: Adequate OBJECTIVE Mental Status Exam Presentation/Appearance: Calm. Cooperative with evaluation. Hospital garb. Appears unkempt, somewhat diaphoretic. Orientation: x3 Sensorium: Awake and alert Eye contact: Fair Affect: Somewhat blunted Mood: Euthymic Depression: Denies Anxiety: Denies Thought Content: - Denies SI/HI, AH/VH, PI. States and also believes they will not kill themselves. - Denies Hopeless/Helpless Thoughts Thought Process: Linear, decrease in tangentality Associations: Appropriate Speech: Normal tone and rate Judgment: Fair Insight: Fair Cognition: Memory: Short-term deficits, long-term intact Attention/Concentration: Grossly intact Fund of Knowledge: Adequate Abstractions: Did not assess MMSE: Did not assess Per nursing report patient's Ativan drip was discontinued at approximately 0900 this morning down from a rate of 7 mg an hour yesterday. He has been calm and cooperative. He did have some mild hallucinations this morning believing he was seeing something wrong with his ear. He slept well last night, noted no sx of acute césar. Per attending report patient was confused this morning. 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 Feels he may be experiencing mood episode and may require inpatient psych admission. ASSESSMENT 41-year-old male presents with hallucinations and bizarre behavior and the context of alcohol withdrawal delirium. He has a reported history of mood disorder but his exact diagnosis is somewhat unclear at this time. His sleep disturbances as well as possible activation on amitriptyline may point to bipolar or schizoaffective diagnosis. It is unclear if he is currently experiencing a mood episode on top of delirium but at present there are no overt signs of césar. He does endorse confusion and hallucinations are reported however is unclear if these are the result of acute confusional state, hypnagogic, or do to mood episode. At this time it would be prudent to wait until alcohol withdrawal delirium clears prior to evaluating for mood episode. Diagnosis Delirium due to alcohol withdrawal Alcohol use disorder severe Rule out unspecified depressive disorder versus unspecified bipolar disorder versus schizoaffective disorder A total of 30 minutes was spent with the patient with more than 50% of the time spent in counseling and/or coordination of care. Suggestion: 1. Continue CIWA, vitamin supplementation, and Ativan as required with goal to decrease total daily amount by 20% daily once symptoms are under control. Monitor for rebound delirium with rapid Ativan taper. 2. Continue Depakote at 250mg BID will not titrate up for now as patient is in good behavioral control and their are no sx of césar. Continue to montior LFTs. 3. Appreciate social work assistance for disposition planning, at present continue to plan for IOP. Thank you for including psychiatry in this case we'll continue to follow. Subjective Subjective: as above Objective Last 24 Hrs of Vital Signs/I&O Current Medications Sig/Ravinder Start time Last Medication Dose Route Stop Time Status Admin Chlordiazepoxide HCl 25 MG TID 10/10 1000 AC 10/11 PO 1018 Divalproex Sodium 250 MG BID 10/07 2200 AC 10/11 PO 1017 Docusate Sodium 100 MG DAILY PRN 10/09 1300 AC PO Enoxaparin Sodium 40 MG DAILY 10/05 1000 AC 10/11 SC 1017 Erythromycin 1 FROILAN 4 TIMES/DAY 10/05 1800 DC 10/10 OPH 2129 Folic Acid 1 MG DAILY 10/10 1000 AC 10/11 PO 1016 Hydrocortisone 1 FROILAN BID 10/09 1132 AC 10/11 EXT 1019 Lorazepam 100 MG Q24H 10/11 0430 AC Dextrose/Water 1,000 ML IV Lorazepam 100 MG Q7H 10/07 1500 DC 10/10 Dextrose/Water 1,000 ML IV 1551 Lorazepam 1 MG Q4P PRN 10/05 2045 AC IV Lorazepam 2 MG Q2P PRN 10/04 2230 AC 10/05 PO 0230 Lorazepam 1 MG Q2P PRN 06/09 2230 AC PO Multivitamins 1 TAB DAILY 10/10 1000 AC 10/11 PO 1017 Pantoprazole Sodium 40 MG DAILY 10/05 0600 AC 10/11 IV 1016 Senna 187 MG AT BEDTIME PRN 10/09 1300 AC 10/09 PO 1533 Thiamine HCl 100 MG DAILY 10/10 1000 AC 10/11 PO 1017 Laboratory Tests 10/11/16 0432: Anion Gap 10, Estimated GFR > 60, Glucose 76, Calcium 9.4, Phosphorus 4.5, Magnesium 1.8, Total Bilirubin 0.3, AST 57, ALT 114 H, Albumin 3.5, CBC w Diff MAN DIFF ORDERED, RBC 4.19 L, MCV 98.1 H, MCH 32.7 H, RDW 13.4, MPV 7.8, Gran % 53.7, Lymphocytes % 25.1, Monocytes % 13.5 H, Eosinophils % 5.7 H, Basophils % 2.0, Absolute Granulocytes 3.8, Segmented Neutrophils 41 L, Band Neutrophils 1, Absolute Lymphocytes 1.8, Lymphocytes 38, Monocytes 13 H, Absolute Monocytes 0.9 H, Eosinophils 6 H, Absolute Eosinophils 0.4, Basophils 1, Absolute Basophils 0.1, Platelet Estimate ADEQUATE, Polychromasia 1+, Ovalocytes FEW, Stomatocytes FEW, PUBS MCHC 33.3, Fld Total RBCs Counted 100 Vital Signs Date Time Temp Pulse Resp B/P B/P Pulse O2 O2 Flow FiO2 Mean Ox Delivery Rate 10/11 1200 98.3 74 12 118/82 10/11 1200 95 Room Air 10/11 1000 98.0 94 13 115/74 10/11 0800 98.0 77 10 136/90 10/11 0800 96 Room Air 10/11 0800 98.0 77 10 136/90 94 Room Air 10/11 0600 97.5 80 18 107/65 16 0400 97.3 75 18 118/100 16 0400 96 Room Air 16 0000 98.2 71 20 142/110 10/11 0000 99 Room Air 10/11 0000 98.2 71 71 142/110 99 Room Air 15 2200 98.0 72 16 142/98 10/10 2000 98.0 82 20 148/108 10/10 2000 100 Room Air 10/10 1800 97.8 82 17 135/100 10/10 1600 97.8 80 20 128/82 10/10 1600 97.8 80 20 128/82 98 Room Air Intake & Output 10/11 1600 10/11 0800 10/11 0000 Intake Total 400 1160 Output Total 800 480 Balance -400 680 Intake, IV 400 560 Intake, Oral 0 600 Number 0 0 Bowel Movements Output, Urine 800 480
--- NOTE | 2016-10-11 17:52 | NUR ---
DOWNGRADED TO GENERAL MEDECINE. REMAINS IN THE ICU A GM HOLD.
--- NOTE | 2016-10-11 23:07 | NUR ---
PATIENT A/0 3 , MOVES ALL THE LIMBS, OPEN EYES SPONTANEOUSLY, PERRLA, OBEYS COMMANDS, DEMNIES ANY PAIN. AFEBRILE, VITAL SIGNS FOLLOWS NO=166/82, HR=74, RR=18, TEMP=99.5, SATURATION=96%, BREATHING SPONTANEOUSLY ON R/A, LUNGS IS CLEAR, NO COUGH. ABDOMEN IS SOFT, GOOD BOWEL SOUND, LAST BM TODAY. ABLE TO VOID SPONTANEOUSLY USING URINAL. SKIN IS INTACT. AT 2225, PATIENT REPORT WAS GIVEN TO NORMA MCKAY OF [address] [place] [address], PATIENT IS READY FOR TRANSFER, AWAITING FOR THE ROOM TO BE CLEANED. AT 2300, RECEIVED CALL FROM [address] [place] [address], ROOM IS READY FOR OCCUPANCY. PATIENT HAS BEEN TRANFERED VIA WHEEL CHAIR WITHOUT UNTOWARDS EVENT, TIME OF TRANSFER 2320.
--- NOTE | 2016-10-12 01:31 | NUR ---
PT ARRIVED TO FLOOR VIA WC. PT A/OX3, RA, CIWA 0, PAIN 0/10. CALL NUR IN REACH. WILL CONTINUE TO MONITOR.
[2016-10-12 07:00] VITALS: BP 126/75
--- NOTE | 2016-10-12 08:27 | PN- Housestaff ---
See Addendum Subjective Follow-up For: Alcohol withdrawal, with history of EtOH dependence. Hallucinations. History of mood disorder. Complaints: no complaints Subjective: Patient seen and examined at bedside this AM. He is laying in bed in no acute distress. He reports his lower extremities feel slightly weak secondary to underuse while in the ICU. He was instructed he can walk around the unit with assistance as he is fall risk. He denies fever, chills, anxiety, chest pain, shortness of breath, tremors, nausea or vomiting. On discussion regarding his alcohol use, patient reports he knows he should not drink but the thought of drinking a beer right now "sounds good". He is amenable to going back to AA and trying to find the best program for him. He will continue to discuss outpatient care with social work. Review of Systems Constitutional: Denies: chills, fever. EENTM: Denies: visual changes, hearing changes, nasal congestion. Cardiovascular: Denies: chest pain, palpitations. Respiratory: Denies: cough, short of breath. Gastrointestinal: Denies: abdominal pain, nausea, vomiting. Genitourinary: Denies: dysuria. Musculoskeletal: Denies: joint pain, neck pain. Skin: Denies: rash. Neurological/Psychological: Reports: weakness (Bilateral lower extremities). Denies: confusion. Hematologic/Endocrine: Denies: bruising, bleeding. Immunologic/Allergic: Denies: splenectomy. Objective Last 24 Hrs of Vital Signs/I&O Vital Signs Date Time Temp Pulse Resp B/P B/P Pulse O2 O2 Flow FiO2 Mean Ox Delivery Rate 10/12 0700 97.8 69 18 126/75 97 Room Air 10/11 2359 98.6 76 18 122/72 96 Room Air 10/11 2000 99.5 74 18 128/82 10/11 1600 97.6 73 21 106/80 10/11 1600 97.6 73 21 106/80 96 Room Air 10/11 1400 98.0 80 17 91/47 10/11 1200 98.3 74 12 118/82 10/11 1200 95 Room Air Intake & Output 10/12 1600 10/12 0800 10/12 0000 Intake Total 120 380 Output Total 300 460 Balance -180 -80 Intake, Oral 120 380 Output, Urine 300 460 Physical Exam General Appearance: Alert, Oriented X3, Cooperative, No Acute Distress Skin: No Rashes, No Significant Lesion Skin Temp/Moisture Exam: Warm/Dry HEENT: Atraumatic, PERRLA, EOMI, Mucous Membr. moist/pink Neck: Supple, No JVD Lymphatic: Cervical nl Cardiovascular: Regular Rate, Normal S1, Normal S2, No Murmurs Lungs: Normal Air Movement Abdomen: Normal Bowel Sounds, Soft, No Tenderness Neurological: Normal Speech, Normal Tone, Sensation Intact Extremities: No Clubbing, No Cyanosis, No Edema Vascular: Pulses Symmetrical Current Medications: Current Medications Sig/Ravinder Start time Last Medication Dose Route Stop Time Status Admin Chlordiazepoxide HCl 25 MG TID 10/10 1000 AC 10/12 PO 0935 Divalproex Sodium 250 MG BID 10/07 2200 AC 10/12 PO 0935 Docusate Sodium 100 MG DAILY PRN 10/09 1300 AC PO Enoxaparin Sodium 40 MG DAILY 10/05 1000 AC 10/12 SC 0934 Erythromycin 1 FROILAN 4 TIMES/DAY 10/05 1800 DC 10/10 OPH 2129 Folic Acid 1 MG DAILY 10/10 1000 AC 10/12 PO 0935 Hydrocortisone 1 FROILAN BID 10/09 1132 AC 10/12 EXT 0935 Lorazepam 100 MG Q24H 10/11 0430 DC Dextrose/Water 1,000 ML IV Lorazepam 1 MG Q4P PRN 10/05 2045 AC IV Lorazepam 2 MG Q2P PRN 10/04 2230 DC 10/05 PO 0230 Lorazepam 1 MG Q2P PRN 10/04 2230 DC PO Multivitamins 1 TAB DAILY 10/10 1000 AC 10/12 PO 0936 Pantoprazole Sodium 40 MG DAILY 10/05 0600 AC 10/12 IV 0934 Senna 187 MG AT BEDTIME PRN 10/09 1300 AC 10/09 PO 1533 Thiamine HCl 100 MG DAILY 10/10 1000 AC 10/12 PO 0936 Last 24 Hrs of Lab/Stevo Results Last 24 Hrs of Labs/Mics: Laboratory Tests 10/12/16 0645: Anion Gap 8, Estimated GFR > 60, BUN/Creatinine Ratio 14.3 Orders CIWA Score (last 24 hrs): Max CIWA in last 24 hours of 5. No PRN ativan required. Assessment/Plan Assessment: Mr. Calloway is a pleasant 41 year old male with PMH bipolar depression, possible schizoaffective disorder and alcohol abuse who presented to [place] on 10/05/16 due to visual hallucinations and insomnia for 4 days. There were reports from neighbors of rolling around in the dirt and acting strangely. Labs were significant for: WBC 10.9, H&H 14/41.5, macrocytosis, glucose 100, AST 161, ALT 146. Utox negative. Serum alcohol <10. EKG: Sinus tachycardia. Patient was initially admitted to the ICU but was transferred to the general medicine for continued care. Below is the current management: 1. Acute alcohol withdrawl with delirium tremens * Ativan drip has been discontinued and patient is currently on Librium 25 mg PO TID * Continue CIWA scoring, max in last 24 hours is 5 * Continue ativan PRN per CIWA scoring, patient has not required any as of yet * Continue folic acid, thiamine, MV * Psych consult appreciated, continue to follow recommendations * Social work consult appreciated * Patient is fall risk, increase ambulation with assistance to regain strength of lower extremities 2. Macrocytosis * Likely 2/2 alcohol abuse * Continue vitamin supplementation * Alcohol cessation counseling provided 3. Transaminitis * 2/2 ETOH abuse * AST on admission 161, ALT 146 * Continue to trend, transaminitis improving 4. Bipolar depression * Continue depakote at 250 mg PO BID and do not titrate up as of now * Continue to follow psychiatric recommendations * Plan for IOP once stable for discharge 5. Bacterial conjunctivitis, RESOLVED * Patient completed course of erythro eye drops * No further evidence of conjunctivitis on examination FULL CODE DVTP: SC lovenox Regular Diet PRN pain pathway Problem List: 1. Alcohol withdrawal syndrome 2. Mood disorder 3. Full code status Pain Ratin Pain Location: n/a Pain Goal: Remain pain free Pain Plan: PRN pain pathway Tomorrow's Labs & Rationales: None.
[2016-10-12 12:00] VITALS: BP 126/75
[2016-10-12 14:23] VITALS: BP 128/88
[2016-10-12 23:28] VITALS: BP 138/95
[2016-10-13 06:44] VITALS: BP 130/88
--- NOTE | 2016-10-13 10:22 | PN- Att Addend ---
Attending Addendum Attending Brief Note Patient seen and examined. Overall he appears to be doing better. Given that it's been more than 48 hours on the librium, I will now taper it from 25mg 3 times a day to 25mg twice a day. He needs to actively work with PT to achieve his home goals before discharge. He also needs close follow-up with psychiatry. He was in acute alcohol withdrawal with delirium tremens on high-dose Ativan drip and was transferred from the ICU after treatment for the same.
--- NOTE | 2016-10-13 12:27 | PN- Housestaff ---
Subjective Follow-up For: Alcohol withdrawal, with history of EtOH dependence. Hallucinations. History of mood disorder. Subjective: Patient was seen and examined this morning, sitting comfortably in bed, complaining of fine tremors. Denied any chest pain, abdominal pain, nausea or vomiting. Vital signs are stable. Review of Systems Constitutional: Reports: see HPI. Objective Last 24 Hrs of Vital Signs/I&O Vital Signs Date Time Temp Pulse Resp B/P B/P Pulse O2 O2 Flow FiO2 Mean Ox Delivery Rate 10/13 0644 97.7 76 20 130/88 97 Room Air 10/12 2328 97.7 78 20 138/95 98 Room Air 10/12 1423 98.1 98 18 128/88 98 Room Air Intake & Output 10/13 1600 10/13 0800 10/13 0000 Intake Total Output Total 1500 500 Balance -1500 -500 Output, Urine 1500 500 Physical Exam General Appearance: Alert, Oriented X3, Cooperative, No Acute Distress Skin: No Rashes, No Breakdown, No Significant Lesion Skin Temp/Moisture Exam: Warm/Dry HEENT: Atraumatic, PERRLA, EOMI, Mucous Membr. moist/pink Neck: Supple, No JVD Cardiovascular: Regular Rate, Normal S1, Normal S2, No Murmurs Lungs: Clear to Auscultation, Normal Air Movement Abdomen: Normal Bowel Sounds, Soft, No Tenderness, No Hepatospenomegaly, No Masses Neurological: Normal Gait, Normal Speech, Strength at 5/5 X4 Ext, Normal Tone, Sensation Intact, Cranial Nerves 3-12 NL, Reflexes 2+ Extremities: No Clubbing, No Cyanosis, No Edema, Normal Pulses, No Tenderness/ Swelling Assessment/Plan Assessment: Mr. Calloway is a pleasant 41 year old male with PMH bipolar depression, possible schizoaffective disorder and alcohol abuse who presented to [place] on 10/05/16 due to visual hallucinations and insomnia for 4 days. There were reports from neighbors of rolling around in the dirt and acting strangely. Labs were significant for: WBC 10.9, H&H 14/41.5, macrocytosis, glucose 100, AST 161, ALT 146. Utox negative. Serum alcohol <10. EKG: Sinus tachycardia. Patient was initially admitted to the ICU but was transferred to the general medicine for continued care. Below is the current management: 1. Acute alcohol withdrawl with delirium tremens * Decrease Librium to 25 mg by mouth twice a day * Continue ativan PRN per CIWA scoring * Continue folic acid, thiamine, MV * Psych consult appreciated, continue to follow recommendations * Social work consult appreciated * Patient is fall risk, increase ambulation with assistance to regain strength of lower extremities 2. Macrocytosis * Likely 2/2 alcohol abuse * Continue vitamin supplementation * Alcohol cessation counseling provided 3. Transaminitis * 2/2 ETOH abuse * AST on admission 161, ALT 146 * Continue to trend, transaminitis improving 4. Bipolar depression * Continue depakote at 250 mg PO BID and do not titrate up as of now * Continue to follow psychiatric recommendations * Plan for IOP once stable for discharge 5. Bacterial conjunctivitis, RESOLVED * Patient completed course of erythro eye drops * No further evidence of conjunctivitis on examination FULL CODE DVTP: SC lovenox Regular Diet PRN pain pathway Problem List: 1. Alcohol withdrawal syndrome Pain Ratin Pain Location: None Pain Goal: Pain 4 or less Pain Plan: Mild pain pathway Tomorrow's Labs & Rationales: None
[2016-10-13 14:40] VITALS: BP 124/90
[2016-10-13 16:00] VITALS: BP 124/90; BP 128/76
[2016-10-13 18:00] VITALS: BP 124/90
--- NOTE | 2016-10-13 18:49 | NUR ---
ALERT AND ORIENTED X 3. ON ROOM AIR. DENIES SHORTNESS OF BREATH. LUNGS CLEAR VITAL SIGNS STABLE. DENIES CHEST PAIN. + PULSES. DENIES NUMBNESS/TINGLING SKIN C/D/I. NO DISCOMFORT NOTED. CIWA SCORE OF ZERO. PATIENT RESTING AT THIS TIME. WILL CONTINUE TO MONITOR
[2016-10-13 20:00] VITALS: BP 120/82
[2016-10-13 22:47] VITALS: BP 126/100
[2016-10-14 06:42] VITALS: BP 106/70
--- NOTE | 2016-10-14 07:42 | Transfer of Care Summary ---
Hospital Course Course Hospital Course: 41 yo male with hx of alcohol dependnce. unclear psych hx. He came to the ED after neighbors called police as he was having bizarre behavior. Patient admits drinking heavily, about half a bottle of vodka and a few beers, "a couple of time a week". He say his last drink was Friday09/30/16. Patient was started on IV Ativan and placed on CIWA protocol as his treatment for alcohol withdrawal. #Alcohol withdrawal Patient was admitted to the ICU for Ativan drip. History of was tapered as tolerated. We start patient on librium 25 mg TID to facilitate tapering down the Ativan drip. Patient was placed on oral folic acid, thiamine, multivitamin. #Bacterial conjunctivitis Was treated with erythromycin drop 4 times a day. #Microcytic anemia Patient has a normal B12 and folic acid. His anemia most likely secondary to alcohol abuse. #Questionable bipolar Psychiatric recommended that we start patient on Depakote. Regular diet DVT prophylaxis: Lovenox Full code Assessment/Plan: See above
--- NOTE | 2016-10-14 10:03 | PN- Housestaff ---
SOSAAMI 10/14/16 1003: Subjective Follow-up For: Alcohol withdrawal, with history of EtOH dependence. Hallucinations. History of mood disorder. Subjective: This morning patient is alert, awake and oriented. He is hemodynamically stable. He offers no complaints. Review of Systems Constitutional: Reports: see HPI. Objective Last 24 Hrs of Vital Signs/I&O Vital Signs Date Time Temp Pulse Resp B/P B/P Pulse O2 O2 Flow FiO2 Mean Ox Delivery Rate 10/14 0642 97.6 67 14 106/70 96 10/13 2247 98.2 70 18 126/100 98 Room Air 10/13 2000 98.5 88 18 120/82 10/13 1800 98.1 84 20 124/90 10/13 1600 98.1 84 20 124/90 10/13 1440 98.1 84 20 124 98 Room Air Intake & Output 10/14 1600 10/14 0800 10/14 0000 Intake Total 10 600 Output Total 450 Balance 10 150 Intake, IV 10 Intake, Oral 600 Output, Urine 450 Physical Exam General Appearance: Alert, Oriented X3, Cooperative, No Acute Distress Cardiovascular: Regular Rate, No Murmurs Lungs: Clear to Auscultation Abdomen: Normal Bowel Sounds, Soft, No Tenderness Neurological: Normal Speech, Strength at 5/5 X4 Ext, Sensation Intact, Cranial Nerves 3-12 NL Extremities: No Edema Assessment/Plan Assessment: Mr. Calloway is a pleasant 41 year old male with PMH bipolar depression, possible schizoaffective disorder and alcohol abuse. Patient was initially admitted to the ICU but was transferred to the general medicine for continued care. 1. Acute alcohol withdrawl with delirium tremens 2. Macrocytosis 3. Transaminitis 4. Bipolar depression PLAN * Received last dose of Librium today * Continue multivitamins/folate/thiamine * Continue depakote at 250 mg PO BID and do not titrate up as of now * IOP follow-up after discharge * Continue holding his home medications of Seroquel and sertraline upon discharge * Advised to follow-up with his psychiatrist after discharge FULL CODE DVTP: SC loveshiv Problem List: 1. 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 Calloway is a pleasant 41 year old male with PMH bipolar depression, possible schizoaffective disorder and alcohol abuse, transferred from ICU on ativan drip now on librium taper 25 daily, CIWA 0-4, clinically improving, MV, thiamine, folic acid, SW consult and kirti on board. anticipate d /c soon.
--- NOTE | 2016-10-14 12:28 | NUR ---
Case discussed at [facility]'s this morning and later with Medical Attending and House Staff. Patient markedly improved clinically with no s/s of ETOH Withdrawal since very early yesterday morning, and medications have been titrated to none. Patient interviewed; remembers conversation from last week and patient remains interested in IOP level of care; intake appointment secured for 10/18/16 at 2:00pm. Justin has been given this information and it has also been included on his discharge instructions. Please call if other social work needs arise.
[2016-10-14] MEDS ORDERED: FOLIC ACID1 M1 PO ×2 (12:58→13:22)
[2016-10-14] MEDS ORDERED: DIVALPROEX SOD250 M2 PO ×2 (12:58→13:21)
[2016-10-14] MEDS ORDERED: ONE DAILY MULT1 EAC2 PO ×2 (12:58→13:23)
[2016-10-14] MEDS ORDERED: VITAMIN B-1100 MG PO ×2 (12:58→13:23)
--- NOTE | 2016-10-14 13:00 | Patient Discharge Instructions ---
Discharge Instructions General Discharge Information You were seen/treated for: Acute alcohol withdrawl with delirium tremens Special Instructions: 1. PLEASE FOLLOWUP WITH GFP AND IOP Diet Continue normal diet: Yes Activity Full Activity/No Limits: Yes Acute Coronary Syndrome Inclusion Criteria At DC or during hospital stay patient has or had the following: ACS DIAGNOSIS No Discharge Core Measures Meds if any: Prescribed or Continued at Discharge Meds if any: NOT Prescribed or Continued at Discharge Congestive Heart Failure Inclusion Criteria At DC or during hospital stay patient has or had the following: CHF DIAGNOSIS No Discharge Core Measures Meds if any: Prescribed or Continued at Discharge Meds if any: NOT Prescribed or Continued at Discharge Cerebrovascular accident Inclusion Criteria At DC or during hospital stay patient has or had the following: CVA/TIA Diagnosis No Discharge Core Measures Meds if any: Prescribed or Continued at Discharge Meds if any: NOT Prescribed or Continued at Discharge Venous thromboembolism Inclusion Criteria VTE Diagnosis No VTE Type NONE VTE Confirmed by (Test) NONE Discharge Core Measures - Per Current guidelines, there needs to be overlap - treatment for the first 5 days of Warfarin therapy. - If discharged on Warfarin prior to 5 days of - overlap therapy, the patient will need to be - assessed for post discharge needs including - *Post discharge parental anticoagulation - *Warfarin and/or parental anticoagulation education - *Follow up date to check INR post discharge At least 5 days overlap therapy as Inpatient No Meds if any: Prescribed or Continued at Discharge Note: Overlap Therapy is Warfarin and Anticoagulant Meds if any: NOT Prescribed or Continued at Discharge
[2016-10-14 14:33] VITALS: BP 134/81
--- NOTE | 2016-10-15 08:43 | Discharge Summary ---
Visit Information Visit Dates Admission Date: 10/05/16 Discharge Date: 10/14/16 Hospital Course Course Attending Physician: DAMIAN EDWARDS,UMANG Primary Care Physician: PATIENT HAS NO PRIMARY CARE DR Hospital Course: 41 yo male with hx of alcohol dependnce, depression and bipolar disorder. He came to the ED after neighbors called police as he was having bizarre behavior. Patient admitted drinking heavily. Vitals on admission: Temperature 97.7, pulse 142, respiratory rate 20, blood pressure 118/72 and oxygen saturation 92% on room air. 10/05/16 0540: Anion Gap 16, Estimated GFR > 60, BUN/Creatinine Ratio 21.1, Vitamin B12 Pending , Folate Pending, TSH Pending, PT 11.7, INR 1.12, CBC w Diff NO MAN DIFF REQ, RBC 4.24 L, MCV 96.9 H, MCH 32.5 H, RDW 13.8, MPV 7.8, Gran % 81.6 H, Lymphocytes % 8.6 L, Monocytes % 8.7, Eosinophils % 0.7, Basophils % 0.4, Absolute Granulocytes 8.4 H, Absolute Lymphocytes 0.9 L, Absolute Monocytes 0.9 H, Absolute Eosinophils 0.1, Absolute Basophils 0, PUBS MCHC 33.5, Hepatitis A IgM Ab Pending, Hep Bs Antigen Pending, Hep B Core IgM Ab Conf Pending, Hepatitis C Antibody Pending, HIV 1&2 Ab Western Blot Pending 10/04/16 2145: Urine Opiates Screen < 100.00, Methadone Screen < 40, Barbiturate Screen < 60, Ur Phencyclidine Scrn < 6.00, Amphetamines Screen < 100, U Benzodiazepines Scrn < 85, Urine Cocaine Screen < 50, Urine Cannabis Screen 5.30 CIWAs in the ER have ranged from 22-31. He was admitted in ICU and started on Ativan drip. #Alcohol withdrawal He was put on CIWA protocol. Later on his Ativan drip was discontinued and he was started on librium 25 mg taper. Patient was also started on folic acid, thiamine, multivitamin. During the course of hospitalization he became increasingly agitated and was put on 4 point hard restraints. He was also seen by psychiatrist. Initially it was difficult to start him on antipsychotics due to prolonged QTC. Later on he was started on Depakote per psych recommendations. He was transferred to general medicine floor after stabilization. On discharge his psych medications Seroquel and sertraline were discontinued and he was discharged home on Depakote per psych. He was advised to follow-up with the psychiatrist after discharge. #Bacterial conjunctivitis Was treated with erythromycin drop 4 times a day. Allergies: Coded Allergies: olanzapine (From ZYPREXA) (Severe, AGRESSION AND SEVERE AGITATION 10/07/16) diphenhydramine (From BENADRYL) (HALLUCINATION AND AGITATION 10/16/16) Disposition Summary Disposition Principal Diagnosis: Alcohol withdrawal with delirium tremens Additional Diagnosis: Macrocytosis Transaminitis Bipolar disorder and depression Discharge Disposition: home or self care Discharge Instructions General Discharge Information Code Status: Full Code Patient's Diet: regular Patient's Activity: self limited Follow-Up Instructions/Appts: 1. PLEASE FOLLOWUP WITH GFP AND IOP Medications at Discharge Discharge Medications: Stop taking the following medications: Cephalexin (Cephalexin) 500 MG CAPSULE ORAL TWICE DAILY Days = 5 Citalopram Hydrobromide (Celexa) 20 MG TABLET ORAL DAILY Quetiapine Fumarate (Seroquel) 100 MG TABLET Start taking the following new medications: Divalproex Sodium (Divalproex Sodium) 250 MG TABLET.DR 1 Tablet ORAL TWICE DAILY Qty = 7 No Refills Comments: Last Taken: 10/14/16 Time: 0900AM Folic Acid (Folic Acid) 1 MG TABLET 1 Tablet ORAL DAILY Qty = 30 No Refills Comments: Last Taken: 10/14/16 Time: 0900AM Multivitamin (One Daily Multivitamin) 1 EACH TABLET 1 Tablet ORAL DAILY Qty = 30 No Refills Comments: Last Taken: 10/14/16 Time: 0900AM Thiamine HCl (Vitamin B-1) 100 MG TABLET 1 Tablet ORAL DAILY Qty = 30 No Refills Comments: Last Taken: 10/14/16 Time: 0900AM Copies To: JIMMY EDWARDS,CATHERINE
== END 2016-10-14 15:00 | DRG 775 ==
LOC: ERH 21:06 → ERHI 10-05 04:03 → CRI 10-05 04:03 → ENRESERV 10-05 06:26 → ENTRNSPT 10-05 08:29 → CRI 10-05 09:44 → CMPTRNSPT 10-05 19:00 → CRI 10-09 20:29 → 2NB 10-11 23:57 → ENPENDDIS 10-14 13:26 → 2NB 10-14 15:00
PROVIDERS: Internal Medicine; Pediatrics; Student in an Organized Health Care Education/Training Program; ADMIT Student in an Organized Health Care Education/Training Program
DX: F10.231 Alcohol dependence with withdrawal delirium (principal); Y90.0 Blood alcohol level of less than 20 mg/100 ml; F10.251 Alcohol dependence with alcohol-induced psychotic disorder with hallucinations; F31.9 Bipolar disorder, unspecified; R74.0 Nonspecific elevation of levels of transaminase and lactic acid dehydrogenase [LDH]; H10.89 Other conjunctivitis; D75.89 Other specified diseases of blood and blood-forming organs; Z91.14 Patient's other noncompliance with medication regimen; F25.9 Schizoaffective disorder, unspecified
CPT/HCPCS: 2NBSP; CCU; 36415; 80307; 81001; 82436; 87086; 87389; 93005; 93010; 96374; 97116-GO; 97161-GP; 97530-GO; 99291; G0480; J1650; J1815; J2060; J3490; J7060

== ENCOUNTER 2016-10-16 13:57 | Emergency (ER) | payer OTHER ==
[~2016-10-16] VITALS: Ht 182.9 cm; Wt 81.6 kg
[~2016-10-16 13:57] MED LIST changes: +CELEXA20 M1 PO; +DIVALPROEX SOD250 M2 PO; +FOLIC ACID1 M1 PO; +ONE DAILY MULT1 EAC2 PO; +SEROQUEL100 M1; +VITAMIN B-1100 MG PO
--- NOTE | 2016-10-16 14:14 | ED PSYCHIATRIC COMPLAINT ---
See Addendum History of Present Illness General Chief Complaint: ETOH/Drug Related Complaint Stated Complaint: BIBA, + ETOH, ON PEER Source: patient, old records, EMS, police Exam Limitations: no limitations Vital Signs & Intake/Output Vital Signs & Intake/Output ED Intake and Output 10/17 0000 10/16 1200 Intake Total Output Total Balance Patient 180 lb Weight Weight Reported by Patient Measurement Method Reconcile Medications Divalproex Sodium 250 MG TABLET.DR 1 TAB PO BID ANXIETY Folic Acid 1 MG TABLET 1 TAB PO DAILY SUPPLEMENT Multivitamin (One Daily Multivitamin) 1 EACH TABLET 1 TAB PO DAILY SUPPLEMENT Thiamine HCl (Vitamin B-1) 100 MG TABLET 1 TAB PO DAILY SUPPLEMENT Triage Nurses Notes Reviewed? yes Onset: Abrupt HPI: 41-year-old male presents brought in on police paper by ambulance. The patient states that he had 2 small shoT glass drinks just prior to arrival. The patient was recently admitted to this hospital for alcohol withdrawal and detox and was discharged 2 days ago. He was sent home on Depakote which he states he has been taking and has been compliant with he denies any visual or auditory hallucinations he denies suicidal or homicidal ideation. He is declining wishing to speak with crisis he is declining alcohol detox and offered he states that he went to a PET detention to adopt a PET and they called the police on him after he was slurring his words and not filling up performed correctly. On arrival he has no complaints (ALMITA RAMOS) Allergies Coded Allergies: olanzapine (From ZYPREXA) (Severe, AGRESSION AND SEVERE AGITATION 10/07/16) diphenhydramine (From BENADRYL) (HALLUCINATION AND AGITATION 10/16/16) (JESUS EDWARDS,FILEMON) Past History Travel History Traveled to [place] past 21 day No Medical History Any Pertinent Medical History? see below for history Neurological: NONE EENT: NONE Cardiovascular: NONE Respiratory: NONE Gastrointestinal: NONE Hepatic: NONE Renal: NONE Musculoskeletal: NONE Psychiatric: depression, ETOH Endocrine: NONE History of MRSA: No History of VRE: No History of CDIFF: No Tetanus Vaccine: 10/07/15 Surgical History Surgical History: non-contributory Psychosocial History Who do you live with Patient/Self Services at Home None What is your primary language Citizen Of [place] Tobacco Use: Current Not Daily Daily Tobacco Use Amount/Type: => 5 Cigarettes daily ETOH Use: heavy use Illicit Drug Use: denies illicit drug use Family History Hx Contributory? No (ALMITA RAMOS) Review of Systems Review of Systems Constitutional: Reports: see HPI. All Other Systems: Reviewed and Negative Comments Review of systems: See HPI, All other systems negative. Constitutional, no chills no fever, no malaise HEENT: No visual changes no sore throat no congestion Cardiovascular: No chest pain , no palpitation Skin: no rashes, no change in skin Respiratory: No dyspnea no cough no sputum GI: No nausea no vomiting, no diarrhea, : No dysuria Muscle skeletal: No joint pain, no joint swelling, no back pain, no neck pain, Neurologic: No numbness no confusion, no headache Psych: No stress no depression,. Heme/endocrine: No bruising Immunology: No lymphadenopathy (ALMITA RAMOS) Physical Exam Physical Exam General Appearance: well developed/nourished, alert, awake Neurological/Psychiatric: no motor/sensory deficits, awake Comments: Well-developed well-nourished person in no acute distress HEENT: Normal EENT exam; PERRL, EOMI, HEAD is atraumatic. moist mucous membranes. Neck: Supple, normal range of motion Back: Nontender, no CVA tenderness. Full range of motion Cardiovascular: Regular rate and rhythms no murmurs rubs Respiratory: No respiratory distress. Patient speaking in full complete sentences. Breath sounds clear to auscultation bilaterally: NO W/R/R Abdomen: Soft, nontender nondistended Extremity: No edema, full range of motion of extremities Neuro: Alert oriented x3, motor sensory normal,There were no obvious focal neurologic abnormalities. Skin: No appreciable rash on exposed skin, skin is warm and dry. Psych: Mood and affect is normal, memory and judgment is normal. SAD PERSONS Done? patient not suicidal (ALMITA RAMOS) Progress Differential Diagnosis: ETOH INTOXICATION, DEHYDRATION, ELECTROLTYTE ABNORAMLITY , DEPRESSION, ANXIETY Hand-Off Endorsed To: JESSICA SILVA DO Endorsed Time: 1844 Pending: other (sobriety) (ALMITA RAMOS) Plan of Care: Orders Procedure Date/time Status URINE DRUG SCREEN FOR ER ONLY 10/16 140 Complete ETHANOL 10/16 140 Complete DEPAKOTE LEVEL 10/16 1408 Complete COMPREHENSIVE METABOLIC PANEL 10/16 1408 Complete CBC WITHOUT DIFFERENTIAL 06/21 1409 Complete Laboratory Tests 10/16/16 1430: Urine Opiates Screen < 100.00, Methadone Screen < 40, Barbiturate Screen < 60, Ur Phencyclidine Scrn < 6.00, Amphetamines Screen < 100, U Benzodiazepines Scrn > 800 H, Urine Cocaine Screen < 50, Urine Cannabis Screen < 5.00 10/16/16 1427: Anion Gap 15, Estimated GFR > 60, BUN/Creatinine Ratio 7.5, Glucose 88, Calcium 9.7, Total Bilirubin 0.5, AST 95 H, ALT 162 H, Alkaline Phosphatase 65, Total Protein 8.1, Albumin 4.5, Globulin 3.6, Albumin/Globulin Ratio 1.3, CBC w Diff NO MAN DIFF REQ, RBC 4.40 L, MCV 96.0 H, MCH 32.8 H, RDW 13.6, MPV 7.3 L, Gran % 36.8 L, Lymphocytes % 46.7, Monocytes % 10.6 H, Eosinophils % 4.0, Basophils % 1.9, Absolute Granulocytes 2.1, Absolute Lymphocytes 2.7, Absolute Monocytes 0.6, Absolute Eosinophils 0.2, Absolute Basophils 0.1, PUBS MCHC 34.1, Valproic Acid 31.1 L, Serum Alcohol 289.0 Labs ordered old records reviewed patient is not suicidal he is declining detox today case discussed with Dr. Marques agrees with plan Patient resting in no apparent distress on repeat eval CASE D/W AND SIGNED OUT TO DR SILVA PENDING PT SOBRIETY (ALMITA RAMOS) Departure Departure Disposition: STILL A PATIENT Condition: Stable Clinical Impression Primary Impression: Alcohol intoxication Referrals: PATIENT HAS NO PRIMARY CARE DR (PCP/Family) Additional Instructions: Continue taking your medications as prescribed Departure Forms: Customer Survey General Discharge Information (ALMITA RAMOS) PA/TRIM LINE WORKER Co-Sign Statement Statement: ED Attending supervision documentation- [] I saw and evaluated the patient. I have also reviewed all the pertinent lab results and diagnostic results. I agree with the findings and the plan of care as documented in the PA's/TRIM LINE WORKER's documentation. [X] I have reviewed the ED Record and agree with the PA's/TRIM LINE WORKER's documentation. [] Additions or exceptions (if any) to the PAs/TRIM LINE WORKER's note and plan are summarized below: [] (JESUS EDWARDS,FILEMON) Departure Comments 10/16/16 6:35 PM PATIENT SIGNED OUT TO ME BY TRI LYNN. INTOXICATED. (JESSICA SILVA DO)
[2016-10-16 14:42] LABS: ABSOLUTE EOSINOPHIL COUNT 0.2 /CUMM (0.0-0.7); ABSOLUTE GRANULOCYTE CT 2.1 /CUMM (1.4-6.5); ABSOLUTE LYMPH COUNT 2.7 /CUMM (1.2-3.4); HEMATOCRIT 42.3 % (42-52)
[2016-10-16 14:46] LABS: ABSOLUTE BASOPHIL COUNT 0.1 /CUMM (0.0-0.2); ABSOLUTE MONOCYTE COUNT 0.6 /CUMM (0.10-0.60); BASOPHIL % 1.9 % (0.0-2.0); GRANULOCYTE % 36.8 % (42.2-75.2); MEAN CORPUSCULAR HGB 32.8 PG (27.0-31.0); MEAN CORPUSCULAR HGB CONC 34.1 G/DL (33.0-37.0); MEAN PLATELET VOLUME 7.3 FL (7.4-10.4); PLATELET COUNT 448 /CUMM (130-400); RBC DISTRIBUTION WIDTH 13.6 % (11.5-14.5); WHITE BLOOD CELL COUNT 5.7 /CUMM (4.8-10.8)
[2016-10-16 20:14] VITALS: BP 117/68
== END 2016-10-16 20:37 ==
LOC: ERH 13:57
PROVIDERS: Physician Assistant Medical
DX: F10.129 Alcohol abuse with intoxication, unspecified (principal)
CPT/HCPCS: 80307; G0480